=== PATIENT | female | born 1955 | race Caucasian/White ===

== ENCOUNTER → 2017-12-05 | Outpatient (CLI) | payer BC ==
--- NOTE | 2017-12-05 11:55 | BD ---
EXAMINATION TYPE: MG DEXA axial skeleton. DATE OF EXAM: 12/05/2017 COMPARISON: 07.10.2014 CLINICAL HISTORY: PT IS A 62 YR OLD FEMALE: ICD-10 CODE: Z13.820 SCREENING FOR OSTEOPOROSIS Height: 63.5 Weight: 173 FRAX RISK QUESTIONS: Alcohol (3 or more units per day): NO Family History (Parent hip fracture): NO FRACTURES Glucocorticoids (More than 3mos): YES (Ex: prednisone, prednisolone, methylprednisolone, dexamethasone, and hydrocortisone). History of Fracture in Adulthood: NO Secondary Osteoporosis: YES 1. Type 1 Diabetes: NO 2. Hyperthyroidism: NO 3. Menopause before 45: YES AT 43 YRS 4. Malnutrition: NO 5. Chronic liver disease: NO Rheumatoid Arthritis: NO Current Tobacco Use: NO RISK FACTORS HISTORY OF: Family History of Osteoporosis: YES HER SISTER AND MOTHER Active: YES Diet low in dairy products/other sources of calcium: NO Postmenopausal woman: YES AT AGE 43 YRS OLD Take estrogen and/or progesterone medications: YES SINCE AGE 43, 19 YRS Hyperparathyroidism: NO Adrenal Insufficiency: NO MEDICATIONS: Prednisone or other steroids: ON PREDNISONE A WEEK AGO FOR BACK PAIN How Lon WEEK Additional Medications: REFLUX MEDS Additional History: NONE TO NOTE EXAM MEASUREMENTS: Bone mineral densitometry was performed using the [employer] System. Bone mineral density as measured about the Lumbar spine is: ----- L1-L4(G/cm2): 1.239 T Score Values are as follows: ----- L1: 1.2 ----- L2: -0.6 ----- L3: 0.7 ----- L4: 0.5 ----- L1-L4: 0.5 Bone mineral density has: Decreased -4.8% since study of: 07.10.2014 Bone mineral density about the R hip (g/cm2): 1.092 Bone mineral density about the L hip (g/cm2): 1.025 T Score values are as follows: -----R Neck: 0.0 -----L Neck: 0.3 -----R Total: 0.7 -----L Total: 0.1 Bone mineral density has: Decreased -2.4% since study of: 07.10.2014 FRAX%'S: THERE IS A 6.0% CHANCE OF A MAJOR OSTEOPOROTIC FX AND A 0.1% FOR A HIP FX....PROBABILITY OF FX IN 10 YRS TIME IMPRESSION: Normal (Values between +1 and -1 indicate normal bone mass). Consider repeating this study in 5 year s or sooner if there is some new clinical indication. NOTE: T-SCORE=SD OF THE YOUNG ADULT MEAN.
--- NOTE | 2017-12-06 09:11 | MM ---
Reason for exam: screening (asymptomatic). Last mammogram was performed 1 year and 1 month ago. History: Patient is postmenopausal. Family history of breast cancer in 2 paternal aunts at age 50. Taking estrogen for 17 years 6 months beginning at age 43. Physical Findings: A clinical breast exam by your physician is recommended on an annual basis and results should be correlated with mammographic findings. MG Screening Mammo w CAD Bilateral CC and MLO view(s) were taken. Prior study comparison: November 05, 2016, bilateral MG 3d diag mammo w/cad MARCUS. May 05, 2016, right breast MG 3d diag mammo w/cad RT. The breast tissue is heterogeneously dense. This may lower the sensitivity of mammography. There is chronic nodularity bilaterally. No significant changes when compared with prior studies. ASSESSMENT: Benign, BI-RAD 2 RECOMMENDATION: Routine screening mammogram of both breasts in 1 year.
== END | disposition home or self-care (01) ==
LOC: RADMAMWWP 08:24
PROVIDERS: ATTEND Obstetrics & Gynecology
DX: Z12.31 Encounter for screening mammogram for malignant neoplasm of breast (principal); Z13.820 Encounter for screening for osteoporosis
CPT/HCPCS: 77067; 77080

== ENCOUNTER 2018-03-08 08:20 | Day surgery (SDC) | payer BC ==
[2018-03-06 09:49] VITALS: BMI 29.1
--- NOTE | 2018-03-08 08:11 | P.GSHP ---
History of Present Illness H&P Date: 03/08/18 CHIEF COMPLAINT: GERD and colon screen HISTORY OF PRESENT ILLNESS: The patient is a 62-year-old female who presents with gastroesophageal reflux disease and need for colon screen. Upper and lower endoscopy were offered for further evaluation and management. PAST MEDICAL HISTORY: Please see list. PAST SURGICAL HISTORY: Please see list. MEDICATIONS: Please see list. ALLERGIES: Please see list. SOCIAL HISTORY: No illicit drug use FAMILY HISTORY: No reports of Crohn disease or ulcerative colitis. REVIEW OF ORGAN SYSTEMS: CONSTITUTIONAL: No reports of fevers or chills. GI: Denies any blood in stools or constipation. PHYSICAL EXAM: VITAL SIGNS: Stable GENERAL: Well-developed pleasant in no acute distress. HEENT: No scleral icterus. Extraocular movements grossly intact. Moist buccal mucosa. NECK: Supple without lymphadenopathy. CHEST: Unlabored respirations. Equal bilateral excursions. CARDIOVASCULAR: Regular rate and rhythm. Distal 2+ pulses. ABDOMEN: Soft, nondistended. MUSCULOSKELETAL: No clubbing, cyanosis, or edema. ASSESSMENT: 1. Gastroesophageal reflux disease 2. Colon screen. PLAN: 1. Recommend proceeding with an upper and lower endoscopy Past Medical History Past Medical History: COPD, GERD/Reflux, Pneumonia, Thyroid Disorder Additional Past Medical History / Comment(s): hx migraines, hiatal hernia, recent diarrhea, gallbladder -acts up if eats certain foods, goiters/thyroid nodules, History of Any Multi-Drug Resistant Organisms: None Reported Past Surgical History: Section, Heart Catheterization, Hernia Repair, Hysterectomy, Orthopedic Surgery Additional Past Surgical History / Comment(s): COLONOSCOPY, THYROID BIOPSY, jv arthroscopy knee surgery (rt x 2), sinus surgery to remove polyps, Past Anesthesia/Blood Transfusion Reactions: Previous Problems w/ Anesthesia, Motion Sickness Additional Past Anesthesia/Blood Transfusion Reaction / Comment(s): BP dropped with one knee surgery Smoking Status: Former smoker - Past Family History Mother Family Medical History: Cancer Additional Family Medical History / Comment(s): colon Medications and Allergies Home Medications Medication Instructions Recorded Confirmed Type Cetirizine HCl [Zyrtec] 10 mg PO DAILY 07/31/14 03/06/18 History Estradiol [Estrace] 1 mg PO DAILY 07/31/14 03/06/18 History Aclidinium [place] [Tudorza 1 puff PO BID 03/06/18 03/06/18 History Pressair] Fluticasone/Vilanterol [Breo 1 inhalation PO Q24HR 03/06/18 03/06/18 History Ellipta 100-25 Mcg Inhaler] Omeprazole [PriLOSEC] 20 mg PO AC-BRKFST 03/06/18 03/06/18 History Allergies Allergy/AdvReac Type Severity Reaction Status Date / Time codeine Allergy Nausea & Verified 03/06/18 09:40 Vomiting NSAIDS (Non-Steroidal Allergy Anaphylaxis Verified 03/06/18 09:40 Anti-Inflamma clarithromycin [From Biaxin] AdvReac N/V/MIGRAIN Verified 03/06/18 09:40 E levofloxacin [From Levaquin] AdvReac N/V/MIGRAIN Verified 03/06/18 09:40 E
[~2018-03-08 08:20] MED LIST: LACTATED RINGERS 1,000 ML IV SCH
[2018-03-08] MEDS ORDERED: LIDOCAINE 1% 20 ML VIAL (10MG/ML) FOR IV START INTRADERMA ONE (11:20)
[2018-03-08 11:22] VITALS: RESP 18
[2018-03-08] MEDS ORDERED: PROPOFOL 10 MG/ML 20 ML VIAL IV ONE (11:38)
[2018-03-08] MEDS ORDERED: LIDOCAINE 1% INJ 10MG/ML (20 ML MDV) ONE (11:38)
--- NOTE | 2018-03-08 11:55 | P.PCN ---
Date of Procedure: 03/08/18 Description of Procedure: PREOPERATIVE DIAGNOSIS: Gastroesophageal reflux disease. POSTOPERATIVE DIAGNOSIS: Gastritis. Gastroesophageal reflux disease. Diaphragmatic hiatal hernia without obstruction. OPERATION: Esophagogastroduodenoscopy with biopsies along antrum and distal esophagus. SURGEON: Shikha Juarez MD ANESTHESIA: MAC. INDICATIONS: The patient is a 62-year-old female who presents with a history of reflux disease. Benefits and risks of the procedure were described. Informed consent was obtained. DESCRIPTION: The patient was brought into the endoscopy suite and laid in the left lateral decubitus position. An Olympus gastroscope was passed along the posterior oropharynx down to the distal esophagus where the squamocolumnar junction was encountered at 35 cm from the incisors. The stomach was entered and no bile reflux was found. Additional findings are listed below. Biopsies with cold forceps were obtained of the antrum and distal esophage. The first through third portion of the duodenum was examined and unremarkable. Retroflexion of the scope confirmed Hill grade 4 lower esophageal valve. The squamocolumnar junction demostrated LA grade B erosive esophagitis. The stomach was desufflated. The patient tolerated the procedure well. FINDINGS: Squamocolumnar junction 35 cm from the incisors. Diaphragmatic hiatus at 38 cm. Hiatal hernia 3 cm. Hill grade 4 lower esophageal valve. LA grade B erosive esophagitis. No active duodenitis. Mild gastritis. Gastric polyps. RECOMMENDATIONS: Further recommendations pending results of pathology report. Upper endoscopy as needed. Will benefit from antireflux surgical procedure
--- NOTE | 2018-03-08 12:29 | P.PCN ---
Date of Procedure: 03/08/18 Description of Procedure: PREOPERATIVE DIAGNOSIS: Colonoscopy screening. Family history colon cancer POSTOPERATIVE DIAGNOSIS: Colonoscopy screening. Family history colon cancer Multiple tubular adenomas throughout the colon. External hemorrhoids, grade 2 Internal hemorrhoids, grade 2 Scattered diverticulosis OPERATION: Colonoscopy to the ileocecal valve and appendiceal orifice. Colonoscopy with multiple snare biopsies. Colonoscopy with multiple cold forceps biopsies. SURGEON: Shikha Juarez MD. ANESTHESIA: MAC. INDICATIONS: The patient is a 62-year-old female who presents for colonoscopy screening. Benefits and risks were described and informed consent was obtained. DESCRIPTION OF PROCEDURE: The patient had undergone Gatorade, MiraLAX and Dulcolax prep. She had been brought into the operating room and laid in the left lateral decubitus position. After adequate intravenous sedation, the rectum was examined with 2% lidocaine jelly. External hemorrhoids were encountered. The rectal tone was within normal limits. No lesions were palpated in the rectal vault. An Olympus colonoscope was advanced until the ileocecal valve and appendiceal orifice were clearly viewed. The prep was fair with visualization of the mucosal folds. The scope was removed with visualization of each mucosal fold. Scattered diverticulosis was encountered. Multiple colonic polyps were found and cold forcep biopsy or snare polypectomy. No evidence of focal colitis was found. Retroflexion of the scope demonstrated grade 2 internal hemorrhoids without active bleeding or inflammation. The colon was desufflated. The patient had tolerated the procedure well. Withdrawal time was over 6 minutes. FINDINGS: Internal hemorrhoids, grade 2 External hemorrhoids, grade 2. No arteriovenous malformations. Removal of 12 polyps from the proximal, mid transverse colon and descending colon: - Snare polypectomy ileocecal valve x 2, 12 mm and 3 mm tubulovillous adenoma polyp. - Snare polypectomy proximal ascending colon, 8 mm flat villous adenoma polyp. - Snare polypectomy mid ascending colon, 5 mm flat villous adenoma polyp. - Snare polypectomy x 2 at 10 cm from the anal verge, 5 and 3 mm polyp, rectum - Snare polypectomy x 2 at 20 cm from anal verge, 4 mm polyp, sigmoid colon - Cold forceps biopsy at 15 cm from the anal verge, 4 mm polyp. - Cold forceps biopsy at distal transverse colon, 4 mm polyp. No focal colitis. Scattered diverticulosis RECOMMENDATIONS: Given severity of tubular adenomas, recommend repeat colonoscopy 1 year, 2019 Plan - Discharge Summary New Discharge Prescriptions: No Action Cetirizine HCl [Zyrtec] 10 mg PO DAILY Estradiol [Estrace] 1 mg PO DAILY Omeprazole [PriLOSEC] 20 mg PO AC-BRKFST Fluticasone/Vilanterol [Breo Ellipta 100-25 Mcg Inhaler] 1 inhalation PO Q24HR Aclidinium [place] [Tudorza Pressair] 1 puff PO BID Discharge Medication List Cetirizine HCl [Zyrtec] 10 mg PO DAILY 07/31/14 [History] Estradiol [Estrace] 1 mg PO DAILY 07/31/14 [History] Aclidinium [place] [Tudorza Pressair] 1 puff PO BID 03/06/18 [History] Fluticasone/Vilanterol [Breo Ellipta 100-25 Mcg Inhaler] 1 inhalation PO Q24HR 03/06/18 [History] Omeprazole [PriLOSEC] 20 mg PO AC-BRKFST 03/06/18 [History]
[2018-03-08 12:45] VITALS: BP 139/86; PULSE 77
== END 2018-03-08 13:00 | disposition home or self-care (01) ==
LOC: ORWHC2ENDO 08:20
PROVIDERS: ATTEND Surgery Plastic and Reconstructive Surgery
DX: Z12.11 Encounter for screening for malignant neoplasm of colon (principal); D12.2 Benign neoplasm of ascending colon; D12.0 Benign neoplasm of cecum; D12.3 Benign neoplasm of transverse colon; D12.8 Benign neoplasm of rectum; K62.1 Rectal polyp; K63.5 Polyp of colon; K64.4 Residual hemorrhoidal skin tags; K64.1 Second degree hemorrhoids; K57.30 Diverticulosis of large intestine without perforation or abscess without bleeding; K29.50 Unspecified chronic gastritis without bleeding; K21.0 Gastro-esophageal reflux disease with esophagitis; K22.10 Ulcer of esophagus without bleeding; K44.9 Diaphragmatic hernia without obstruction or gangrene; Z80.0 Family history of malignant neoplasm of digestive organs; J44.9 Chronic obstructive pulmonary disease, unspecified; E07.9 Disorder of thyroid, unspecified; Z79.51 Long term (current) use of inhaled steroids; Z79.899 Other long term (current) drug therapy; Z88.6 Allergy status to analgesic agent; Z88.5 Allergy status to narcotic agent; Z88.1 Allergy status to other antibiotic agents; Z87.891 Personal history of nicotine dependence
CPT/HCPCS: 88305; 45380; 45385; 43239; J2001; J2704

== ENCOUNTER → 2018-05-17 | Outpatient (CLI) | payer BC ==
--- NOTE | 2018-05-17 14:12 | US ---
EXAMINATION TYPE: US gallbladder DATE OF EXAM: 05/17/2018 COMPARISON: NONE CLINICAL HISTORY: K80.20Calculus of gallbladder w/out cholecystitis; LUQ pain that radiates to back a nd noted after meals,nausea, diarrhea, hiatal hernia EXAM MEASUREMENTS: Liver Length: 15.7 cm Gallbladder Wall: 0.2 cm CBD: 0.3 cm Right Kidney: 9.2 x 5.2 x 3.4 cm Pancreas: hyperechoic but homogeneous Liver: wnl Gallbladder: wnl Evidence for sonographic Mehta's sign: no CBD: wnl Right Kidney: wnl IMPRESSION: Normal abdomen ultrasound
== END | disposition home or self-care (01) ==
LOC: RADUSWWP 10:22
PROVIDERS: ATTEND Surgery Plastic and Reconstructive Surgery
DX: K80.20 Calculus of gallbladder without cholecystitis without obstruction (principal); Z88.6 Allergy status to analgesic agent; Z88.5 Allergy status to narcotic agent; Z88.1 Allergy status to other antibiotic agents
CPT/HCPCS: 76705

== ENCOUNTER → 2018-05-23 | Outpatient (CLI) | payer BC ==
--- NOTE | 2018-05-23 10:41 | NM ---
EXAMINATION TYPE: NM hepatobiliary w EF DATE OF EXAM: 05/23/2018 COMPARISON: Ultrasound gallbladder 05/17/2018 HISTORY: Epigastric pain, heartburn, Gallstones TECHNIQUE: After the intravenous administration of 4.87 mCi Tc 99m Mebrofenin hepatobiliary scintigra phy is performed. Immediate images post injection. FINDINGS: There is satisfactory initial accumulation of tracer by the liver. The gallbladder is visualized wit hin 12 minutes. The small bowel activity is noted within 6 minutes. At one hour 8 ounces of oral en sure plus is given to mimic CCK and gallbladder ejection fraction is calculated at 70 %, in the rupa l range. Therefore there is no scintigraphic evidence of cystic or common bile duct obstruction to s uggest acute cholecystitis or gallbladder dyskinesia. IMPRESSION: Exam is within normal limits.
== END | disposition home or self-care (01) ==
LOC: RADNMMAIN 06:55
PROVIDERS: ATTEND Surgery Plastic and Reconstructive Surgery
DX: K80.20 Calculus of gallbladder without cholecystitis without obstruction (principal); Z88.1 Allergy status to other antibiotic agents; Z88.6 Allergy status to analgesic agent
CPT/HCPCS: 78226; A9537

== ENCOUNTER → 2018-06-20 | Outpatient (CLI) | payer BC ==
--- NOTE | 2018-06-20 12:13 | CT ---
EXAMINATION TYPE: CT abdomen pelvis w con DATE OF EXAM: 06/20/2018 COMPARISON: None HISTORY: Pancreatic lesion/mass CT DLP: 673.2 mGycm CONTRAST: CT scan of the abdomen and pelvis is performed with Oral Contrast and with IV Contrast, patient injec jeannine with 120 mL of Isovue 370. FINDINGS: LUNG BASES-: No visible nodule. No infiltrate. Basilar linear atelectasis noted. LIVER/GB: No calcified gallstones. No space occupying hepatic lesion. Biliary tree is of normal ca liber. Mild fatty hepatic infiltration. PANCREAS: No inflammation. 7.5 mm cystic lesion within the pancreatic body. No evidence for solid ma ss at this time. No evidence of pancreatic ductal dilatation. No unusual pancreatic calcifications. SPLEEN: No splenic enlargement. No lesion seen. ADRENALS: No nodule. No thickening. KIDNEYS/BLADDER: No hydronephrosis. No nephrolithiasis. No distinct renal mass. Urinary bladder g rossly unremarkable. BOWEL: Normal appendix. Normal bowel caliber. No inflammation. GENITAL ORGANS: No gross abnormality. LYMPH NODES: No greater than 1cm abdominal or pelvic lymph nodes are appreciated. AORTA: No significant abnormality. OSSEOUS STRUCTURES: No significant abnormality is seen. OTHER: No significant additional abnormality is seen. IMPRESSION: 1. Nonspecific 7.5 mm cystic lesion within the pancreatic body. No evidence for solid mass at this t meliza. No evidence of pancreatic ductal dilatation. No unusual pancreatic calcifications.
== END | disposition home or self-care (01) ==
LOC: RADCTMAIN 08:19
PROVIDERS: ATTEND Surgery Plastic and Reconstructive Surgery
DX: K86.9 Disease of pancreas, unspecified (principal); Z88.1 Allergy status to other antibiotic agents; Z88.6 Allergy status to analgesic agent
CPT/HCPCS: 74177; Q9967

== ENCOUNTER → 2018-07-11 | Outpatient (CLI) | payer BC ==
[2018-07-11 11:29] LABS: HCT 51.7 % (34.0-46.0); MCHC 32.9 g/dL (31.0-37.0); MCV 94.3 fL (80.0-100.0); Mean Platelet Volume 6.6; Platelet Count 292 k/uL (150-450); RBC 5.48 m/uL (3.80-5.40); WBC 6.2 k/uL (3.8-10.6)
[2018-07-11 16:32] LABS: Iron Saturation 24.62 (12.00-45.00)
== END | disposition home or self-care (01) ==
LOC: LABWHC1 10:40
PROVIDERS: ATTEND Surgery Plastic and Reconstructive Surgery
DX: E61.1 Iron deficiency (principal)
CPT/HCPCS: 36415; 83540; 83550; 85027

== ENCOUNTER → 2018-12-05 | Outpatient (CLI) | payer BC ==
[2018-12-05 09:49] LABS: HCT 51.3 % (34.0-46.0); HGB 16.6 gm/dL (11.4-16.0); MCH 30.7 pg (25.0-35.0); MCHC 32.4 g/dL (31.0-37.0); MCV 94.6 fL (80.0-100.0); Mean Platelet Volume 7.1; Platelet Count 293 k/uL (150-450); RBC 5.42 m/uL (3.80-5.40); WBC 9.1 k/uL (3.8-10.6)
== END ==
LOC: LABPAT 08:55
PROVIDERS: ATTEND Surgery Plastic and Reconstructive Surgery
DX: Z01.812 Encounter for preprocedural laboratory examination (principal)
CPT/HCPCS: 85027

== ENCOUNTER 2018-12-08 10:44 | Observation (INO) | payer BC ==
[2018-12-05 08:35] VITALS: BMI 27.9
--- NOTE | 2018-12-08 08:04 | P.GSHP ---
History of Present Illness H&P Date: 12/08/18 CHIEF COMPLAINT: Paraesophageal hiatal hernia with gastroesophageal reflux disease. HISTORY OF PRESENT ILLNESS: The patient is a 63-year-old female who presents with paraesophageal hiatal hernia. She has completed an esophageal manometry including upper endoscopy workup. Now she presents for surgical intervention. PAST MEDICAL HISTORY: Please see list. PAST SURGICAL HISTORY: Please see list. MEDICATIONS: Please see list. ALLERGIES: Please see list. SOCIAL HISTORY: No illicit drug use FAMILY HISTORY: No reports of Crohn disease or ulcerative colitis. REVIEW OF ORGAN SYSTEMS: CONSTITUTIONAL: No reports of fevers or chills. GI: Denies any blood in stools or constipation. PHYSICAL EXAM: VITAL SIGNS: Stable GENERAL: Well-developed pleasant and in no acute distress. HEENT: No scleral icterus. Extraocular movements grossly intact. Moist buccal mucosa. NECK: Supple without lymphadenopathy. CHEST: Unlabored respirations. Equal bilateral excursions. CARDIOVASCULAR: Regular rate and rhythm. Distal 2+ pulses. ABDOMEN: Soft, nondistended. No peritoneal signs. MUSCULOSKELETAL: No clubbing, cyanosis, or edema. SKIN: Well-perfused. Good skin turgor. MANOMETRY: Shows no evidence of achalasia or scleroderma. ASSESSMENT: 1. Diaphragmatic paraesophageal hiatal hernia with severe gastroesophageal reflux disease. PLAN: 1. Recommend proceeding with a robotic paraesophageal hiatal hernia with possible mesh. 2. Benefits and risks of surgical intervention was discussed including possibility of open technique. 3. Inpatient hospitalization recommended of 2 nights 4. DVT prophylaxis. 5. Antibiotic prophylaxis. 6. She has also completed a very low caloric high-protein diet to address underlying hepatomegaly. Past Medical History Past Medical History: COPD, GERD/Reflux, Pneumonia, Thyroid Disorder Additional Past Medical History / Comment(s): past hx migraines, hiatal hernia, goiters/thyroid nodules, History of Any Multi-Drug Resistant Organisms: None Reported Past Surgical History: Section, Heart Catheterization, Hernia Repair, Hysterectomy, Orthopedic Surgery Additional Past Surgical History / Comment(s): COLONOSCOPY, THYROID BIOPSY, jv arthroscopy knee surgery (rt x 2), sinus surgery to remove polyps, jv inguinal hernia Past Anesthesia/Blood Transfusion Reactions: Previous Problems w/ Anesthesia, Motion Sickness, Postoperative Nausea & Vomiting (PONV) Additional Past Anesthesia/Blood Transfusion Reaction / Comment(s): BP dropped post op Smoking Status: Former smoker - Past Family History Mother Family Medical History: Cancer Additional Family Medical History / Comment(s): colon Medications and Allergies Home Medications Medication Instructions Recorded Confirmed Type Cetirizine HCl [Zyrtec] 10 mg PO DAILY 07/31/14 12/05/18 History Estradiol [Estrace] 1 mg PO DAILY 07/31/14 12/05/18 History Aclidinium [place] [Tudorza 1 puff PO BID 03/06/18 12/05/18 History Pressair] Fluticasone/Vilanterol [Breo 1 inhalation PO Q24HR 03/06/18 12/05/18 History Ellipta 100-25 Mcg Inhaler] Omeprazole [PriLOSEC] 20 mg PO AC-BRKFST 03/06/18 12/05/18 History Allergies Allergy/AdvReac Type Severity Reaction Status Date / Time codeine Allergy Nausea & Verified 12/05/18 08:32 Vomiting NSAIDS (Non-Steroidal Allergy Anaphylaxis Verified 12/05/18 08:32 Anti-Inflamma clarithromycin [From Biaxin] AdvReac N/V/MIGRAIN Verified 12/05/18 08:32 E levofloxacin [From Levaquin] AdvReac N/V/MIGRAIN Verified 12/05/18 08:32 E
[~2018-12-08 10:44] MED LIST changes: +ACETAMINOPHEN IV (For NPO) 1,000 MG in EMPTY BAG 1 BAG IVPB ONE; +DEXAMETHASONE SOD PHOSPHATE 10 MG/ML 1 ML VIAL IV ONE; +HEPARIN SODIUM,PORCINE 5,000 UNIT/ML 1 ML VIAL SQ ONE; +LIDOCAINE 1% 20 ML VIAL (10MG/ML) FOR IV START INTRADERMA PRN; +MIDAZOLAM 2 MG/2 ML VIAL IV PRN; +SCOPOLAMINE 1.5MG/72HR PATCH TRANSDERM STA; +ceFAZolin IN SWFI 2 GM/20 ML SYRINGE IVP ONE; +fentaNYL (PF) 50 MCG/ML 2 ML AMP IV PRN
[2018-12-08] MEDS ORDERED: ONDANSETRON 4 MG/2 ML VIAL IVP ONE (12:00)
[2018-12-08] MEDS ORDERED: ROCURONIUM BROMIDE 10 MG/ML 10 ML VIAL IV ONE (14:00)
[2018-12-08] MEDS ORDERED: PROPOFOL 10 MG/ML 20 ML VIAL IV ONE (14:00)
[2018-12-08] MEDS ORDERED: LIDOCAINE 1% INJ 10MG/ML (20 ML MDV) ONE (14:00)
[2018-12-08] MEDS ORDERED: fentaNYL (PF) 50 MCG/ML 2 ML AMP ONE (14:00)
[2018-12-08] MEDS ORDERED: SUCCINYLCHOLINE CHLORIDE 100 MG/5 ML SYR IV ONE (14:00)
[2018-12-08] MEDS ORDERED: NEOSTIGMINE 1 MG/ML 10 ML VIAL ONE (14:00)
[2018-12-08] MEDS ORDERED: MIDAZOLAM 2 MG/2 ML VIAL ONE (14:00)
[2018-12-08] MEDS ORDERED: GLYCOPYRROLATE 0.2 MG/ML 2 ML VIAL ONE (14:00)
[2018-12-08] MEDS ORDERED: HYDROmorphone (PF) 1 MG/ML ONE (14:00)
[2018-12-08] MEDS ORDERED: BUPIVACAIN-EPI 0.25%-1:200,000 30 ML VIAL SQ ONE (14:38)
[2018-12-08] MEDS ORDERED: LACTATED RINGERS 1,000 ML IV ONE (15:54)
[2018-12-08] MEDS ORDERED: ACETAMINOPHEN IV (For NPO) 1,000 MG in EMPTY BAG 1 BAG IVPB ONE (16:06)
[2018-12-08] MEDS ORDERED: NALOXONE 0.4 MG/ML 1 ML VIAL IV PRN (16:06)
--- NOTE | 2018-12-08 16:06 | P.OP ---
Date of Procedure: 12/08/18 Description of Procedure: DESCRIPTION OF PROCEDURE(S): SURGEON: ABRAN HOWARD MD PREOPERATIVE DIAGNOSES: 1. Gastroesophageal reflux disease. 2. Paraesophageal hiatal hernia, midline. 3. Chronic obstructive pulmonary disease POSTOPERATIVE DIAGNOSES: 1. Gastroesophageal reflux disease. 2. Paraesophageal hiatal hernia, midline, 4 x 3 cm 3. Chronic obstructive pulmonary disease OPERATION: 1. Robotic-assisted da Franky Xi laparoscopic repair of paraesophageal hiatal hernia, 4 x 3 cm, with [place] Biopatch A 8 x 8 cm. 2. Intraoperative esophagogastroduodenoscopy with cold biopsy forceps of the antrum 3. Placement of esophageal 56-Northern Irish bougie ANESTHESIA: General with local anesthetic. ESTIMATED BLOOD LOSS: 5 mL SPECIMENS REMOVED: 1. Mediastinal mass 3 cm at phrenoesophageal ligament 2. Antrum biopsies upper endoscopy COMPLICATIONS: None. Pathology: none sent Condition: stable Disposition: floor FINDINGS: 1. Midline paraesophageal hiatal hernia 4 x 3 2. Intraoperative upper endoscopy confirms complete closure of hiatal hernia from Hill grade 4 to Hill grade 1 INDICATIONS: The patient is a 63-year-old female who presents with regurgitation, gastroesophageal reflux disease poorly controlled despite medications, and a symptomatic diaphragmatic hiatal hernia. Preoperative workup including upper endoscopy demonstrated a Hill grade 4 lower esophageal valve. She completed an esophageal manometry. Given the severity of symptoms, she had elected for surgical intervention. Benefits and risks including bleeding, infection, recurrence, dysphagia, injury to the lung, need for further surgery was described at length. Informed consent was obtained. DESCRIPTION: The patient was brought into the operating room and placed in supine position. Preoperatively she had received heparin subcutaneously for DVT prophylaxis. After general induction, the abdomen was prepped and draped in standard sterile fashion. The patient had previously voided prior to coming to the operating room. Ioban draping was placed along the abdomen. A timeout protocol was confirmed with the surgical team, for which the patient's name, procedure to be performed including DVT prophylaxis with bilateral SCDs, and preoperative antibiotics were also confirmed. A robotic da Franky Xi system was prepped and primed. At 12 cm from the xiphoid to just below the umbilicus, proposed port sites were marked with indelible marker along the left axillary line, left mid-clavicular line with each ports were marked 10 cm from each other. A 5 mm 0 degrees laparoscopic trocar entry was performed along the left upper quadrant. The abdomen was insufflated to 15 mmHg pressure was tolerated well. Diagnostic laparoscopy demonstrated no injury to bowel, viscera, or mesentery. No injury had occurred to the small bowel or viscera. Next, one 8 mm robotic port was placed along the right upper abdomen. An 8-mm port was were placed along the left lateral abdominal wall. The camera 8-mm port was maintained along the epigastrium via the hernia defect. Another 12 mm port was placed along the left upper abdominal wall after exchanging the 5 mm port. Please note that the ports were placed at least 20 cm away from the target anatomy. Care was taken to check that each robotic arm were safely away from collision with the bed or the patient. At the epigastrium, a median sized Jyoti liver retractor was placed under direct visualization with the Iron Dwarf Tree Grower placed under the right shoulder of the patient. All robotic arms were used. The patient was repositioned in reverse Trendelenburg position at 14-degrees after lowering the bed. The robot was docked above the right side of the patient. Using a grasper for arm 3, a grasper for arm 1, including vessel sealer for arm 2, the robotic system was docked and primed as described. Instruments were interchanged by the clinical assistant. I had sat at the console. The gastrohepatic ligament was cleaved using a vessel sealer. Next, the phrenoesophageal ligament was mobilized and the distal esophagus was mobilized circumferentially. The left and right crura was identified. Circumferentially, the hernia sac was excised and brought into the peritoneal cavity. Moderate dissection into the mediastinum was performed to release the esophagus into the abdominal cavity. Care was taken to avoid any gastrotomy. The measured defect was consistent with 4 cm axial length and 3 cm in width. After dissection, the distal esophagus of 3 cm was brought into the abdominal cavity. Once the hiatus and crura was dissected, 2-0 VLOC suture was placed to reapproximate the diaphragmatic hiatus posteriorly. To buttress the repair, a [place] Biopatch A was prepared along the back table and cut in half of a reyes-hole fashion as to reinforce the repair as an underlay. The mesh was placed along the crural repair and tagged using horizontal mattress sutures using 2-0 VLOC. I went to the head of the bed to perform intraoperative esophagogastroduodenoscopy and placement of a 56Fr bougie. The patient has history of presbyesophagus including mild esophageal dysmotility and a 56-[place] bougie was placed under direct visualization. The bougie was placed for 1 minute and then removed. An Olympus gastroscope was passed through posterior oropharynx. Retroflexion of the scope confirmed a Hill grade 1 lower esophageal valve. The stomach had been desufflated. No evidence of leaks were found of the esophagus or stomach. The squamocolumnar junction and hiatus was placed at 40 cm from the incisors. The GI tract with desufflated This concluded the endoscopic portion of the case. The robot was undocked from the patient. I re-scrubbed into the case. All instruments and pneumoperitoneum and specimens were evacuated from the abdominal cavity. Incisions were reapproximated using 4-0 Monocryl in an interrupted subcuticular fashion. Liquid glue was applied to the skin. Local anesthetic was infiltrated in all wounds for postop analgesia. Multiple intra-abdominal films were obtained. At the end of the procedure, needle, sponge, and instrument count was verified correct by the surgical appliance fitter. The patient had tolerated the procedure well and was taken to the postanesthesia unit in stable condition. Intraoperative films were reviewed with the patient's family who was pleased with the level of care.
[2018-12-08] MEDS ORDERED: ACETAMINOPHEN ORAL SUSP 160 MG/5 ML CUP PO PRN (16:09)
[2018-12-08] MEDS: HYDROmorphone 1 MG/ML 1 ML SYRINGE IVP PRN (16:27)
[2018-12-08] MEDS ORDERED: HYDROmorphone 1 MG/ML 1 ML SYRINGE IVP ONE (16:49)
[2018-12-08 18:24] LABS: Calcium 9.1 mg/dL (8.4-10.2); Potassium 4.1 mmol/L (3.5-5.1)
[2018-12-08] MEDS: METOCLOPRAMIDE 5 MG/ML 2 ML VIAL IVP SCH (18:37)
[2018-12-08] MEDS: ONDANSETRON 4 MG/2 ML VIAL IVP SCH (18:37)
[2018-12-08] MEDS: SIMETHICONE 40 MG/0.6 ML DROPS 2,000 MG/30 ML BOTTLE PO SCH (18:37)
[2018-12-08] MEDS: HYOSCYAMINE ORAL DROPS 1.875 MG/15 ML BOTTLE PO SCH (18:37)
[2018-12-08] MEDS: DEXAMETHASONE SOD PHOSPHATE 4 MG/ML 1 ML VIAL IV SCH (19:36)
[2018-12-08] MEDS: D5-0.45% NACL WITH KCL 20MEQ/L 1,000 ML IV SCH (22:00)
[2018-12-09] MEDS: D5-0.45% NACL WITH KCL 20MEQ/L 1,000 ML IV SCH ×2 (00:01→06:14)
[2018-12-09] MEDS: ceFAZolin IN SWFI 2 GM/20 ML SYRINGE IVP SCH ×2 (00:02→08:29)
[2018-12-09] MEDS: SIMETHICONE 40 MG/0.6 ML DROPS 2,000 MG/30 ML BOTTLE PO SCH ×3 (00:03→11:59)
[2018-12-09] MEDS: HYOSCYAMINE ORAL DROPS 1.875 MG/15 ML BOTTLE PO SCH ×3 (00:05→11:58)
[2018-12-09] MEDS: ONDANSETRON 4 MG/2 ML VIAL IVP SCH ×3 (00:06→12:00)
[2018-12-09] MEDS: METOCLOPRAMIDE 5 MG/ML 2 ML VIAL IVP SCH ×3 (00:18→12:01)
[2018-12-09] MEDS: DEXAMETHASONE SOD PHOSPHATE 4 MG/ML 1 ML VIAL IV SCH ×3 (00:20→12:01)
[2018-12-09] MEDS: HYDROmorphone 1 MG/ML 1 ML SYRINGE IVP PRN ×2 (00:21→06:34)
--- NOTE | 2018-12-09 08:25 | FL ---
EXAMINATION TYPE: FL esophagus cervic/pharynx DATE OF EXAM ORDERED: 12/09/2018 8:13 AM HISTORY: Status post Paul fundoplication. COMPARISON: None. FINDINGS: The patient drank contrast with ease. There is prompt egress of barium from the esophagus into the stomach. There is no evidence of extravasation. No significant free air is seen. The ligamen t of [place] is in the normal location. IMPRESSION: STATUS POST PAUL FUNDOPLICATION.
[2018-12-09 08:45] VITALS: PULSE 71; RESP 18
[2018-12-09 08:51] LABS: Basophils % (A) 0 %; Eosinophils % (A) 0 %; HCT 50.3 % (34.0-46.0); HGB 15.8 gm/dL (11.4-16.0); Lymphocytes # (A) 0.9 k/uL (1.0-4.8); Lymphocytes % (A) 6 %; MCH 30.2 pg (25.0-35.0); MCHC 31.5 g/dL (31.0-37.0); MCV 95.9 fL (80.0-100.0); Mean Platelet Volume 6.5; Monocytes # (A) 0.4 k/uL (0-1.0); Monocytes % (A) 3 %; Neutrophils # (A) 12.5 k/uL (1.3-7.7); Neutrophils % (A) 90 %; Platelet Count 266 k/uL (150-450); RBC 5.24 m/uL (3.80-5.40); RDW 13.9 % (11.5-15.5)
[2018-12-09 08:59] LABS: Anion Gap 8 mmol/L; Blood Urea Nitrogen 9 mg/dL (7-17); Calcium 9.4 mg/dL (8.4-10.2); Carbon Dioxide 22 mmol/L (22-30); Chloride 110 mmol/L (98-107); Magnesium 2.1 mg/dL (1.6-2.3); Potassium 4.5 mmol/L (3.5-5.1); Sodium 140 mmol/L (137-145)
[2018-12-09] MEDS ORDERED: ENOXAPARIN 40 MG/0.4 ML SYRINGE SQ SCH (09:00)
[2018-12-09] MEDS ORDERED: PANTOPRAZOLE 40 MG/10 ML VIAL IV SCH (09:00)
[2018-12-09] MEDS ORDERED: SODIUM PHOSPHATE 10 MMOL in SODIUM CHLORIDE 0.9% 250 ML IVPB ONE (13:38)
[2018-12-09] MEDS ORDERED: Phosphorus Replacement Protoco 1 EACH MISC MISCELLANE PRN (13:38)
[2018-12-09] MEDS ORDERED: SODIUM GLYCEROPHOSPHATE 10 MMOL in SODIUM CHLORIDE 0.9% 250 ML IV ONE (13:45)
--- NOTE | 2018-12-09 14:09 | P.DS ---
Providers Date of admission: 12/09/18 06:54 Expected date of discharge: 12/09/18 Attending physician: Shikha Juarez Primary care physician: Otto Rodriguez - Discharge Diagnosis(es) (1) Hiatal hernia with GERD and esophagitis Current Visit: Yes Status: Acute (2) COPD (chronic obstructive pulmonary disease) Current Visit: Yes Status: Acute (3) PONV (postoperative nausea and vomiting) Current Visit: Yes Status: Acute Hospital Course: CHIEF COMPLAINT: Gastroesophageal reflux disease HISTORY OF PRESENT ILLNESS: The patient is a 63-year-old female who presented with gastroesophageal reflux disease including a symptomatic hiatal hernia. She had completed both upper endoscopy including manometry preoperatively. Features were consistent with symptomatic diaphragmatic hernia with reflux disease. She underwent robotic-assisted hiatal hernia repair with mesh placement for moderate size paraesophageal hiatal hernia. Post procedure, she had no coughing. Her gastroesophageal reflux disease resolved. She had passed her esophagram. is at bedside. Intraoperative films were reviewed in detail including post hiatal hernia repair discharge instructions. All questions were reviewed. PHYSICAL EXAM: VITAL SIGNS: Reviewed Vital Signs Temp 98.4 F 12/09/18 08:45 Pulse 71 12/09/18 08:45 Resp 18 12/09/18 08:45 BP 108/65 12/09/18 08:45 Pulse Ox 93 L 12/09/18 08:47 Intake & Output 12/08/18 12/09/18 12/09/18 18:59 06:59 18:59 Intake Total 1750 1730 Output Total 5 1350 Balance 1745 380 Weight 76.204 kg Intake: IV 1750 Oral 1730 Output: Urine 1350 Estimated Blood Loss 5 Other: # Voids 1 GENERAL: Well-developed in no acute distress. HEENT: No sclera icterus. Extraocular movements grossly intact. Moist buccal mucosa. Head is atraumatic, normocephalic. Hears conversational speech. No nasal drainage. NECK: Supple without lymphadenopathy. CHEST: Non-labored respirations and equal bilateral excursions. CARDIOVASCULAR: Palpable 2+ radial pulses. ABDOMEN: Incisions clean dry and intact. MUSCULOSKELETAL: No clubbing, cyanosis or edema. NEUROLOGIC: No focal or lateralizing signs. Cranial nerves II through XII grossly intact. PSYCH: Appropriate affect. Alert and oriented to person, place and time. SKIN: Well perfused. Good skin turgor. STUDIES: Esophagram personally reviewed negative for leak or obstruction Laboratory Last Values WBC 14.0 k/uL (3.8-10.6) H 12/09/18 08:24 RBC 5.24 m/uL (3.80-5.40) 12/09/18 08:24 Hgb 15.8 gm/dL (11.4-16.0) 12/09/18 08:24 Hct 50.3 % (34.0-46.0) H 12/09/18 08:24 MCV 95.9 fL (80.0-100.0) 12/09/18 08:24 MCH 30.2 pg (25.0-35.0) 12/09/18 08:24 MCHC 31.5 g/dL (31.0-37.0) 12/09/18 08:24 RDW 13.9 % (11.5-15.5) 12/09/18 08:24 Plt Count 266 k/uL (150-450) 12/09/18 08:24 Neutrophils % 90 % 12/09/18 08:24 Lymphocytes % 6 % 12/09/18 08:24 Monocytes % 3 % 12/09/18 08:24 Eosinophils % 0 % 12/09/18 08:24 Basophils % 0 % 12/09/18 08:24 Neutrophils # 12.5 k/uL (1.3-7.7) H 12/09/18 08:24 Lymphocytes # 0.9 k/uL (1.0-4.8) L 12/09/18 08:24 Monocytes # 0.4 k/uL (0-1.0) 12/09/18 08:24 Eosinophils # 0.0 k/uL (0-0.7) 12/09/18 08:24 Basophils # 0.0 k/uL (0-0.2) 12/09/18 08:24 Sodium 140 mmol/L (137-145) 12/09/18 08:24 Potassium 4.5 mmol/L (3.5-5.1) 12/09/18 08:24 Chloride 110 mmol/L (98-107) H 12/09/18 08:24 Carbon Dioxide 22 mmol/L (22-30) 12/09/18 08:24 Anion Gap 8 mmol/L 12/09/18 08:24 BUN 9 mg/dL (7-17) 12/09/18 08:24 Creatinine 0.80 mg/dL (0.52-1.04) 12/09/18 08:24 Est GFR (CKD-EPI)AfAm >90 (>60 ml/min/1.73 sqM) 12/09/18 08:24 Est GFR (CKD-EPI)NonAf 80 (>60 ml/min/1.73 sqM) 12/09/18 08:24 Glucose 173 mg/dL (74-99) H 12/08/18 17:55 Calcium 9.4 mg/dL (8.4-10.2) 12/09/18 08:24 Phosphorus 2.0 mg/dL (2.5-4.5) L 12/09/18 08:24 Magnesium 2.1 mg/dL (1.6-2.3) 12/09/18 08:24 ASSESSMENT: 1. Gastroesophageal reflux disease with hiatal hernia symptomatic PLAN: 1. Discharge home today with liquid diet for 2 weeks 2. No lifting over 4 pounds in 4 weeks reviewed. 3. Follow-up in the office in 5 days. Pertinent Studies: Esophagram negative for leaks or obstruction Procedures: Robotic paraesophageal hiatal hernia repair with mesh, 12/08/2018 Patient Condition at Discharge: Good Plan - Discharge Summary Discharge Rx Participant: No New Discharge Prescriptions: New Acetaminophen Oral Susp (Peds) [Tylenol Oral Susp For Peds (Grape)] 500 mg PO Q6H #300 bottle Bisacodyl [Dulcolax] 5 mg PO DAILY PRN #10 tablet. PRN Reason: Constipation Ondansetron Odt [Zofran Odt] 4 mg PO Q8HR PRN #9 tab PRN Reason: Nausea Simethicone 40 mg/0.6 ml Drops [Mylicon Drops] 40 mg PO PCHS PRN #30 ml PRN Reason: Gas No Action Cetirizine HCl [Zyrtec] 10 mg PO DAILY Estradiol [Estrace] 1 mg PO DAILY Omeprazole [PriLOSEC] 20 mg PO AC-BRKFST Fluticasone/Vilanterol [Breo Ellipta 100-25 Mcg Inhaler] 1 inhalation PO RT- DAILY Aclidinium [place] [Tudorza Pressair] 1 puff PO RT-BID Discharge Medication List Cetirizine HCl [Zyrtec] 10 mg PO DAILY 07/31/14 [History] Estradiol [Estrace] 1 mg PO DAILY 07/31/14 [History] Aclidinium [place] [Tudorza Pressair] 1 puff PO RT-BID 03/06/18 [History] Fluticasone/Vilanterol [Breo Ellipta 100-25 Mcg Inhaler] 1 inhalation PO RT- DAILY 03/06/18 [History] Omeprazole [PriLOSEC] 20 mg PO AC-BRKFST 03/06/18 [History] Acetaminophen Oral Susp (Peds) [Tylenol Oral Susp For Peds (Grape)] 500 mg PO Q6H #300 bottle 12/09/18 [Rx] Bisacodyl [Dulcolax] 5 mg PO DAILY PRN #10 tablet.dr 12/09/18 [Rx] Ondansetron Odt [Zofran Odt] 4 mg PO Q8HR PRN #9 tab 12/09/18 [Rx] Simethicone 40 mg/0.6 ml Drops [Mylicon Drops] 40 mg PO PCHS PRN #30 ml [Rx] Follow up Appointment(s)/Referral(s): Shikha Juarez MD [STAFF PHYSICIAN] - 12/12/18 (Please call to confirm time) Patient Instructions/Handouts: Laparoscopic Hiatal Hernia Repair (DC), Full Liquid Diet (DC), How to Use an Incentive Spirometer (DC) Activity/Diet/Wound Care/Special Instructions: Liquid diet only. No carbonated beverages. No straws. No lifting over 4 pounds in 4 weeks. May shower. No bath tub soaks. May take [id number] Tylenol or Aleve for pain. Discharge Disposition: HOME SELF-CARE
[2018-12-09 14:14] VITALS: BP 114/75; TEMP 98
== END 2018-12-09 14:30 | disposition home or self-care (01) ==
LOC: OR 10:44 → 6PED 15:57 → OR 12-09 06:47 → 6PED 12-09 06:54
PROVIDERS: ADMIT Surgery Plastic and Reconstructive Surgery; ATTEND Surgery Plastic and Reconstructive Surgery
DX: K44.9 Diaphragmatic hernia without obstruction or gangrene (principal); J44.9 Chronic obstructive pulmonary disease, unspecified; K21.0 Gastro-esophageal reflux disease with esophagitis; Z87.01 Personal history of pneumonia (recurrent); Z79.890 Hormone replacement therapy; Z87.891 Personal history of nicotine dependence; Z90.710 Acquired absence of both cervix and uterus; Z79.899 Other long term (current) drug therapy; Z79.51 Long term (current) use of inhaled steroids; Z88.6 Allergy status to analgesic agent; Z88.1 Allergy status to other antibiotic agents; Z88.5 Allergy status to narcotic agent
CPT/HCPCS: 43280; S2900; 74210; 80048; 80051; 82310; 82565; 83735; 84100; 84520; 85025; 96372; 96374; 96375

== ENCOUNTER → 2018-12-21 | Outpatient (CLI) | payer BC ==
--- NOTE | 2018-12-24 13:00 | MM ---
Reason for exam: screening (asymptomatic). Last mammogram was performed 1 year and 1 month ago. History: Patient is postmenopausal. Family history of breast cancer in 2 paternal aunts at age 50. Taking estrogen for 17 years 6 months beginning at age 43. MG Screening Mammo w CAD Bilateral CC and MLO view(s) were taken. Prior study comparison: December 05, 2017, bilateral MG screening mammo w CAD. November 05, 2016, bilateral MG 3d diag mammo w/cad [facility]. The breast tissue is heterogeneously dense. This may lower the sensitivity of mammography. No discrete abnormality. No significant changes when compared with prior studies. ASSESSMENT: Negative, BI-RAD 1 RECOMMENDATION: Routine screening mammogram of both breasts in 1 year.
== END | disposition home or self-care (01) ==
LOC: RADMAMWWP 10:03
PROVIDERS: ATTEND Obstetrics & Gynecology
DX: Z12.31 Encounter for screening mammogram for malignant neoplasm of breast (principal)
CPT/HCPCS: 77067

== ENCOUNTER 2019-03-28 09:04 | Day surgery (SDC) | payer BC ==
[2019-03-23 15:15] VITALS: BMI 25.2
--- NOTE | 2019-03-28 08:49 | P.GSHP ---
History of Present Illness H&P Date: 03/28/19 CHIEF COMPLAINT: GERD and colon screen HISTORY OF PRESENT ILLNESS: The patient is a 63-year-old female who presents with gastroesophageal reflux disease and need for colon screen. Upper and lower endoscopy were offered for further evaluation and management. PAST MEDICAL HISTORY: Please see list. PAST SURGICAL HISTORY: Please see list. MEDICATIONS: Please see list. ALLERGIES: Please see list. SOCIAL HISTORY: No illicit drug use FAMILY HISTORY: No reports of Crohn disease or ulcerative colitis. REVIEW OF ORGAN SYSTEMS: CONSTITUTIONAL: No reports of fevers or chills. GI: Denies any blood in stools or constipation. PHYSICAL EXAM: VITAL SIGNS: Stable GENERAL: Well-developed pleasant in no acute distress. HEENT: No scleral icterus. Extraocular movements grossly intact. Moist buccal mucosa. NECK: Supple without lymphadenopathy. CHEST: Unlabored respirations. Equal bilateral excursions. CARDIOVASCULAR: Regular rate and rhythm. Distal 2+ pulses. ABDOMEN: Soft, nondistended. MUSCULOSKELETAL: No clubbing, cyanosis, or edema. ASSESSMENT: 1. Gastroesophageal reflux disease 2. Colon screen. PLAN: 1. Recommend proceeding with an upper and lower endoscopy Past Medical History Past Medical History: COPD, GERD/Reflux, Thyroid Disorder, Vascular Disorder Additional Past Medical History / Comment(s): hx of colon polyps, past hx migraines, hx goiters/thyroid nodules, HX VARICOSE VEINS, STATES "BAD CIRCULATION" History of Any Multi-Drug Resistant Organisms: None Reported Past Surgical History: Section, Heart Catheterization, Hernia Repair, Hysterectomy, Orthopedic Surgery Additional Past Surgical History / Comment(s): jewel funlaplasty, COLONOSCOPY, THYROID BIOPSY, jv arthroscopy knee surgery (rt x 2), sinus surgery to remove polyps, jv inguinal hernia, VEIN STRIPPING Past Anesthesia/Blood Transfusion Reactions: Previous Problems w/ Anesthesia, Motion Sickness, Postoperative Nausea & Vomiting (PONV) Additional Past Anesthesia/Blood Transfusion Reaction / Comment(s): BP dropped post op Smoking Status: Former smoker - Past Family History Mother Family Medical History: Cancer Additional Family Medical History / Comment(s): colon Medications and Allergies Home Medications Medication Instructions Recorded Confirmed Type Cetirizine HCl [Zyrtec Chewable] 10 mg PO DAILY 07/31/14 03/23/19 History Estradiol [Estrace] 1 mg PO DAILY 07/31/14 03/23/19 History Aclidinium [place] [Tudorza 1 puff PO RT-BID 03/06/18 03/23/19 History Pressair] Fluticasone/Vilanterol [Breo 1 inhalation PO RT-DAILY 03/06/18 03/23/19 History Ellipta 100-25 Mcg Inhaler] Acetaminophen Tab [Tylenol Tab] 325 - 650 mg PO Q6H PRN 03/23/19 03/23/19 History Allergies Allergy/AdvReac Type Severity Reaction Status Date / Time codeine Allergy Nausea & Verified 03/23/19 15:11 Vomiting NSAIDS (Non-Steroidal Allergy Anaphylaxis Verified 03/23/19 15:11 Anti-Inflamma clarithromycin [From Biaxin] AdvReac N/V/MIGRAIN Verified 03/23/19 15:11 E levofloxacin [From Levaquin] AdvReac N/V/MIGRAIN Verified 03/23/19 15:11 E
[~2019-03-28 09:04] MED LIST changes: -ACETAMINOPHEN IV (For NPO) 1,000 MG in EMPTY BAG 1 BAG IVPB ONE; -DEXAMETHASONE SOD PHOSPHATE 10 MG/ML 1 ML VIAL IV ONE; -HEPARIN SODIUM,PORCINE 5,000 UNIT/ML 1 ML VIAL SQ ONE; -LIDOCAINE 1% 20 ML VIAL (10MG/ML) FOR IV START INTRADERMA PRN; -MIDAZOLAM 2 MG/2 ML VIAL IV PRN; -SCOPOLAMINE 1.5MG/72HR PATCH TRANSDERM STA; -ceFAZolin IN SWFI 2 GM/20 ML SYRINGE IVP ONE; -fentaNYL (PF) 50 MCG/ML 2 ML AMP IV PRN
[2019-03-28 09:35] VITALS: RESP 16; TEMP 98.6
[2019-03-28] MEDS ORDERED: LIDOCAINE 1% 20 ML VIAL (10MG/ML) FOR IV START INTRADERMA ONE (09:46)
[2019-03-28] MEDS ORDERED: LIDOCAINE 1% INJ 10MG/ML (20 ML MDV) ONE (10:27)
[2019-03-28] MEDS ORDERED: PROPOFOL 10 MG/ML 20 ML VIAL IV ONE (10:27)
--- NOTE | 2019-03-28 10:43 | P.PCN ---
Date of Procedure: 03/28/19 Description of Procedure: PREOPERATIVE DIAGNOSIS: Gastroesophageal reflux disease. POSTOPERATIVE DIAGNOSIS: Gastritis. Gastroesophageal reflux disease. Diaphragmatic hiatal hernia without obstruction. OPERATION: Esophagogastroduodenoscopy with biopsies along antrum SURGEON: Shikha Juarez MD ANESTHESIA: MAC. INDICATIONS: The patient is a 63-year-old female who presents with a history of reflux disease. Benefits and risks of the procedure were described. Informed consent was obtained. DESCRIPTION: The patient was brought into the endoscopy suite and laid in the left lateral decubitus position. An Olympus gastroscope was passed along the posterior oropharynx down to the distal esophagus where the squamocolumnar junction was encountered at 35 cm from the incisors. The stomach was entered and no bile reflux was found. Additional findings are listed below. Biopsies with cold forceps were obtained of the antrum. The first through third portion of the duodenum was examined and unremarkable. Retroflexion of the scope confirmed Hill grade 2 lower esophageal valve. The squamocolumnar junction demostrated LA grade A erosive esophagitis. The stomach was desufflated. The patient tolerated the procedure well. FINDINGS: Squamocolumnar junction 35 cm from the incisors. Diaphragmatic hiatus at 37 cm. Hiatal hernia 2 cm. Hill grade 2 lower esophageal valve. LA grade A erosive esophagitis. No active duodenitis. Mild gastritis. RECOMMENDATIONS: Upper endoscopy as needed. Plan - Discharge Summary Discharge Rx Participant: No New Discharge Prescriptions: No Action Cetirizine HCl [Zyrtec Chewable] 10 mg PO DAILY Estradiol [Estrace] 1 mg PO DAILY Fluticasone/Vilanterol [Breo Ellipta 100-25 Mcg Inhaler] 1 inhalation PO RT- DAILY Aclidinium [place] [Tudorza Pressair] 1 puff PO RT-BID Acetaminophen Tab [Tylenol Tab] 325 - 650 mg PO Q6H PRN PRN Reason: Pain Discharge Medication List Cetirizine HCl [Zyrtec Chewable] 10 mg PO DAILY 07/31/14 [History] Estradiol [Estrace] 1 mg PO DAILY 07/31/14 [History] Aclidinium [place] [Tudorza Pressair] 1 puff PO RT-BID 03/06/18 [History] Fluticasone/Vilanterol [Breo Ellipta 100-25 Mcg Inhaler] 1 inhalation PO RT- DAILY 03/06/18 [History] Acetaminophen Tab [Tylenol Tab] 325 - 650 mg PO Q6H PRN 03/23/19 [History]
--- NOTE | 2019-03-28 11:03 | P.PCN ---
Date of Procedure: 03/28/19 Description of Procedure: PREOPERATIVE DIAGNOSIS: Personal history of multiple high-risk colon polyps Family history colon cancer POSTOPERATIVE DIAGNOSIS: Personal history of multiple high-risk colon polyps Family history colon cancer Multiple tubular adenomas throughout the colon. External hemorrhoids, grade 2 Internal hemorrhoids, grade 2 Scattered diverticulosis OPERATION: Colonoscopy to the ileocecal valve and appendiceal orifice. Colonoscopy with multiple snare biopsies. Colonoscopy with multiple cold forceps biopsies. SURGEON: Shikha Juarez MD. ANESTHESIA: MAC. INDICATIONS: The patient is a 63-year-old female who presents for colonoscopy screening. Last colonoscopy was 1 year ago with multiple high-risk colon polyps excised. Benefits and risks were described and informed consent was obtained. DESCRIPTION OF PROCEDURE: The patient had undergone Suprep colon preparation. She had been brought into the operating room and laid in the left lateral decubitus position. After adequate intravenous sedation, the rectum was examined with 2% lidocaine jelly. External hemorrhoids were encountered. The rectal tone was within normal limits. No lesions were palpated in the rectal vault. An Olympus colonoscope was advanced until the ileocecal valve and appendiceal orifice were clearly viewed. The prep was excellent. Few scattered diverticulosis was encountered. Multiple colonic polyps were found and cold forcep biopsy or snare polypectomy. No evidence of focal colitis was found. Retroflexion of the scope demonstrated grade 2 internal hemorrhoids without active bleeding or inflammation. The colon was desufflated. The patient had tolerated the procedure well. Withdrawal time was over 6 minutes. FINDINGS: Internal hemorrhoids, grade 2 External hemorrhoids, grade 2. No arteriovenous malformations. Removal of 4 polyps: - Snare polypectomy proximal ascending colon, 8 mm flat villous adenoma polyp. - Snare polypectomy mid ascending colon, 8 mm flat villous adenoma polyp. - Cold forceps biopsy at cecum, 5 mm polyp, - Cold forceps biopsy at 30 cm from anal verge, 4 mm polyp, descending colon - Cold forceps biopsy at proximal ascending colon, 4 mm polyp. No focal colitis. Scattered diverticulosis RECOMMENDATIONS: Given severity of tubular adenomas, recommend repeat colonoscopy 3 years, 2021
[2019-03-28 11:31] VITALS: BP 118/82; PULSE 75
== END 2019-03-28 11:52 | disposition home or self-care (01) ==
LOC: ORWHC2ENDO 09:04
PROVIDERS: ATTEND Surgery Plastic and Reconstructive Surgery
DX: Z12.11 Encounter for screening for malignant neoplasm of colon (principal); K29.50 Unspecified chronic gastritis without bleeding; D12.0 Benign neoplasm of cecum; Z80.0 Family history of malignant neoplasm of digestive organs; Z86.010 Personal history of colon polyps; K21.9 Gastro-esophageal reflux disease without esophagitis; K29.70 Gastritis, unspecified, without bleeding; K44.9 Diaphragmatic hernia without obstruction or gangrene; K57.90 Diverticulosis of intestine, part unspecified, without perforation or abscess without bleeding; K64.1 Second degree hemorrhoids; K64.4 Residual hemorrhoidal skin tags; K31.9 Disease of stomach and duodenum, unspecified
CPT/HCPCS: 88305; 45380; 45385; 43239; J2001; J2704

== ENCOUNTER → 2019-12-25 | Outpatient (CLI) | payer BC ==
--- NOTE | 2019-12-25 14:10 | MM ---
Reason for exam: additional evaluation requested from prior study. Last mammogram was performed 1 year ago. History: Patient is postmenopausal. Family history of breast cancer in 2 paternal aunts at age 50. Taking estrogen for 17 years 6 months beginning at age 43. Physical Findings: Nurse did not find any significant physical abnormalities on exam. MG Diagnostic Mammo w CAD [facility] Bilateral CC and MLO view(s) were taken. Prior study comparison: December 21, 2018, bilateral MG screening mammo w CAD. December 05, 2017, bilateral MG screening mammo w CAD. The breast tissue is heterogeneously dense. This may lower the sensitivity of mammography. Benign appearing bilateral calcifications. No suspicious abnormality. These results were verbally communicated with the patient and result sheet given to the patient on 12/25/19. ASSESSMENT: Incomplete: need additional imaging evaluation, BI-RAD 0 RECOMMENDATION: Ultrasound of the left breast. (lateral area of pain)
--- NOTE | 2019-12-25 14:15 | USB ---
Reason for exam: additional evaluation requested from abnormal screening. History: Patient is postmenopausal. Family history of breast cancer in 2 paternal aunts at age 50. Taking estrogen for 17 years 6 months beginning at age 43. US Breast Limited LT Left limited breast ultrasound including focal area of concern, retroareolar and axilla demonstrates a 7 x 5 x 5mm lobular, mixed, complicated cyst at 2 o'clock and a 5 x 3 x 5mm oval, cystic lesion at 3 o'clock. These results were verbally communicated with the patient and result sheet given to the patient on 12/25/19. ASSESSMENT: Benign, BI-RAD 2 RECOMMENDATION: Routine screening mammogram of both breasts in 1 year. Manage patient on a clinical basis.
== END | disposition home or self-care (01) ==
LOC: RADMAMWWP 12:57
PROVIDERS: ATTEND Obstetrics & Gynecology
DX: N64.4 Mastodynia (principal); R92.8 Other abnormal and inconclusive findings on diagnostic imaging of breast
CPT/HCPCS: 77066

== ENCOUNTER → 2020-04-14 | Outpatient (CLI) | payer BC ==
--- NOTE | 2020-04-14 09:14 | MR ---
EXAMINATION TYPE: MR shoulder RT wo con DATE OF EXAM: 04/14/2020 COMPARISON: Right shoulder x-ray April 03, 2020 HISTORY: Painful Right Shoulder. Cannot lift or straighten arm. TECHNIQUE: Multiplanar, multisequence imaging of the right shoulder is performed without contrast. FINDINGS: Rotator Cuff: Complete full-thickness retracted tear of at least majority of the supraspinatus tendon with tendon gap identified coronal images 10 through 13 and sagittal image 6. Perhaps a few anterior and marked posterior fibers remain intact but significant portion at least 80% shows full-thickness retraction tear. Infraspinatus tendon remains intact. Subscapularis tendon is intact with some surrou nding fluid. Rotator cuff muscle bulk is preserved. Acromioclavicular Joint: Moderate narrowing with mild capsular hypertrophy. Underlying fat plane main tained. Slight type II downsloping acromion noted. Glenohumeral Joint: Small to moderate joint effusion extending superiorly and laterally. Moderate to borderline severe narrowing. No significant spurring. Labrum: The labrum appears grossly intact given limitation of non-arthrogram study. Biceps Tendon: The long head of biceps is in normal location within bicipital groove. Bone marrow signal: No focal abnormal marrow signal is appreciated. Other: Prominent fluid subdeltoid/subacromial bursa extending inferiorly. IMPRESSION: 1. Significant full-thickness retracted tear of the supraspinatus tendon suspected more acute/subacut e in age as detailed above.
== END | disposition home or self-care (01) ==
LOC: RADMRIMAIN 07:59
PROVIDERS: ATTEND Orthopaedic Surgery
DX: M75.121 Complete rotator cuff tear or rupture of right shoulder, not specified as traumatic (principal)

== ENCOUNTER → 2020-05-09 | Day surgery (SDC) | payer BC ==
[2020-05-08 08:33] VITALS: BMI 25.0
--- NOTE | 2020-05-08 10:02 | HP ---
HISTORY AND PHYSICAL CHIEF COMPLAINT: Right shoulder pain. 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 She is having pain with overhead use and activity. She has tried medications and rest without much relief. She denies significant previous problems. PAST MEDICAL HISTORY: Significant for COPD. PAST SURGICAL HISTORY: Significant for previous knee surgery, varicose vein stripping, sinus surgery, and hernia repair. CURRENT MEDICATIONS: Symbicort, estradiol. She has allergies to BIAXIN, ANTI-INFLAMMATORIES, LEVAQUIN and CODEINE. FAMILY HISTORY: Significant for heart disease. SOCIAL HISTORY: Significant for previous tobacco use; however, she quit in 1997. 16 POINT REVIEW OF SYSTEMS: Otherwise reviewed and is noncontributory. PHYSICAL EXAMINATION: On examination, the patient is approximately 5 foot 5, 155 pounds of mesomorphic habitus. HEENT: Exam is nonfocal. NECK: Supple. On examination of her right shoulder, she is tender about the anterior subacromial space. She has moderate subacromial crepitus. Active range of motion, forward elevation 50 degrees, external rotation with the arm side 65 degrees, internal rotation to T11. Passively forward elevate her to 150 degrees. Motor strength is 3/5 for abduction, 5-/5 for external rotation. Impingement test, Neer test, and Speed tests are positive. Her distal neurovascular exam appears intact in the right upper extremity. MRI report right shoulder shows evidence of a supraspinatus tear with some retraction. IMPRESSION: 1. Symptomatic right rotator cuff tear. 2. Chronic obstructive pulmonary disease. RECOMMENDATIONS: I talked to the patient at length regarding her condition along with treatment options. At this point, she is quite symptomatic and limited with pain and weakness along with limited motion. After thorough discussion, she opts to proceed with surgery. Will plan to proceed with arthroscopic evaluation with probable subacromial decompression and rotator cuff repair. Risks and benefits were discussed at length in layman's terms. MMODL / IJN: [id number] /
[~2020-05-09] MED LIST changes: +DEXAMETHASONE SOD PHOSPHATE 10 MG/ML 1 ML VIAL IV ONE; +EPINEPHrine (PF) 1 ML in SODIUM CHLORIDE 0.9% IRRIGATIO 3,000 ML IRRIGATION ONE; +LACTATED RINGERS 1,000 ML IV ONE; +LIDOCAINE 1% (10MG/ML) FOR IV START INTRADERMA PRN; +LIDOCAINE 1% INJ 10MG/ML (20 ML MDV) ONE; +MIDAZOLAM 2 MG/2 ML VIAL IV PRN; +MIDAZOLAM 2 MG/2 ML VIAL ONE; +PHENYLEPHRINE-0.9% NACL SYG 1 MG/10 ML SYRINGE ONE; +PROPOFOL 10 MG/ML 20 ML VIAL IV ONE; +ROPIVACAINE 5 MG/ML 30 ML VIAL ONE; +SCOPOLAMINE 1.5MG/72HR PATCH TRANSDERM ONE; +SUCCINYLCHOLINE CHLORIDE 100 MG/5 ML SYR IV ONE; +fentaNYL (PF) 50 MCG/ML 2 ML AMP IV PRN; +fentaNYL (PF) 50 MCG/ML 2 ML AMP ONE
[2020-05-09] MEDS: ONDANSETRON 4 MG/2 ML VIAL IVP ONE ×2 (10:28→14:13)
--- NOTE | 2020-05-09 12:27 | P.ANPRN ---
Procedure Note - Anesthesia - Nerve Block Performed Right Interscalene Single Time Out Performed: Yes (1049) Date of Procedure: 05/09/20 Procedure Start Time: 10:50 Procedure Stop Time: 10:56 Location of Patient: PreOp Indication: Acute Post-Operative Pain, Requested by Surgeon Specifically requested for management of pain by : Sidney Faye Sedation Type: Sedate with meaningful contact maintained Preparation: Sterile Prep Position: Supine Catheter: None Needle Types: Pajunk Needle Gauge: 21 Ultrasound used to visualize needle placement: Yes Ultrasound used to observe medication spread: Yes Injectate: 0.5% Ropivacaine (see comment for volume) Blood Aspirated: No Pain Paresthesia on Injection Noted: No Resistance on Injection: Normal Image Stored and Saved: Yes Events: Uneventful and Well Tolerated
--- NOTE | 2020-05-09 13:25 | P.OP ---
Date of Procedure: 05/09/20 Preoperative Diagnosis: Symptomatic right rotator cuff tear Postoperative Diagnosis: 4 cm rotator cuff tear/acromioclavicular joint arthritis/impingement Procedure(s) Performed: Right shoulder arthroscopic subacromial decompression/distal clavicular resect ion/rotator cuff repair Implants: Arthrex 4.75 mm swivel lock anchor 2, 5.5 mm swivel lock anchor 2 Anesthesia: MADDIE, sheila Surgeon: Sidney Faye Physiotherapist'S Assistant #1: Pola Kenyon Estimated Blood Loss (ml): 10 Pathology: none sent Condition: stable Disposition: PACU Indications for Procedure: The patient's a 64-year-old female who presents with progressive right shoulder pain despite conservative measures. A discussion of the risks and benefits of operative intervention versus continued conservative measures was made with the patient. She opted to proceed with surgery. Operative risks to include infection, neurovascular injury, development of blood clots, possible tendon rerupture, possible need for subsequent procedures was discussed. Informed consent was obtained. Operative Findings: As below Description of Procedure: The patient was brought to the operating room, and after induction of general anesthesia was placed in a beachchair position. A preoperative interscalene block was placed for postoperative analgesia. I examined the right shoulder. There was no gross block to passive motion or gross glenohumeral instability. The right upper extremity was prepped and draped in normal fashion. The bony outlines the acromion, distal clavicle, and coracoid process were outlined with a skin marker. The glenohumeral joint was inflated with 50 mL of saline utilizing a spinal needle from posterior approach. A posterior portal was made through a 5 mm skin incision 1 cm medial and inferior to the posterior lateral border time. A blunt trocar was used to easily into the joint. Diagnostic arthroscopy was performed. An anterior portal was made just lateral to the coracoid process entering the joint above the subscapularis tendon. The subscapularis tendon appeared to be intact. Anterior labrum was intact. The inferior recess was inspected. The posterior labrum was intact. There was a high-grade partial-thickness tear of the long head of the biceps involving interarticular portion. Was elected to proceed with release at this point. This was released from the superior labrum with electrocautery and was allowed to retract to the bicipital groove. On inspection the rotator cuff, a 4 cm tear was noted involving the rotator cuff with mild retraction.. A lateral portal was made 2 centimeters inferior to the anterior lateral border of the acromion. The rotator cuff was then mobilized with a traction suture. This was then easily brought back to the greater tuberosity. The soft tissue on the undersurface of the acromion was debrided with a motorized shaver and electrocautery clearly defining the anterior medial and lateral borders as well as the distal clavicle. An anterior inferior acromioplasty was performed with a motorized princess starting anterolateral, then extending this posteriorly, then extending this medially. I converted to a flat acromion and this was verified in the posterior and lateral viewing portals. The distal 4 mm of the clavicle was resected with a motorized bur. The greater tuberosity was lightly decorticating with a shaver down to a bleeding bony surface. An accessory superior lateral portals made just off the lateral edge of the acromion for anchor placement. 2 anchors were then placed just off the articular surface with the appropriate starting awl. 4.75 mm anchors preloaded with #2 fiber tape were placed. Good purchase was obtained. These fiber tapes were then passed the rotator cuff with a scorpion suture passer. A lateral row was created crisscrossing these tapes. 5.5 mm swivel lock anchors 2 were placed laterally. Good purchase was obtained. Final arthroscopic view showed adequate compression at the footprint. The arthroscope was then removed. The portals were closed with simple 3-0 nylon sutures. A sterile dressing was applied in addition to an abductor brace. The patient was then awoken from general anesthesia and transferred to recovery room in good condition. Blood loss was estimated at 10 mL. No complications were incurred. Sponge and needle counts were correct in the case. Clint BARCLAY assisted and the major components of the case to include arm positioning, anchor placement, and rotator cuff repair.
[2020-05-09 13:41] VITALS: TEMP 97.1
[2020-05-09] MEDS: HYDROmorphone 0.5 MG/0.5 ML SYRINGE IVP PRN ×2 (14:13→14:24)
[2020-05-09 14:37] VITALS: RESP 17
[2020-05-09 14:43] VITALS: BP 122/88; PULSE 77
== END | disposition home or self-care (01) ==
LOC: OR 09:51
PROVIDERS: ATTEND Orthopaedic Surgery
DX: M75.101 Unspecified rotator cuff tear or rupture of right shoulder, not specified as traumatic (principal); M19.011 Primary osteoarthritis, right shoulder; M75.41 Impingement syndrome of right shoulder; S46.111A Strain of muscle, fascia and tendon of long head of biceps, right arm, initial encounter; J44.9 Chronic obstructive pulmonary disease, unspecified; I27.20 Pulmonary hypertension, unspecified; K21.9 Gastro-esophageal reflux disease without esophagitis; K44.9 Diaphragmatic hernia without obstruction or gangrene; J30.2 Other seasonal allergic rhinitis; G43.909 Migraine, unspecified, not intractable, without status migrainosus; E07.9 Disorder of thyroid, unspecified; Z79.51 Long term (current) use of inhaled steroids; Z79.890 Hormone replacement therapy; Z88.5 Allergy status to narcotic agent; Z88.1 Allergy status to other antibiotic agents; Z88.6 Allergy status to analgesic agent; Z88.8 Allergy status to other drugs, medicaments and biological substances; Z87.891 Personal history of nicotine dependence; Z98.890 Other specified postprocedural states; Z90.710 Acquired absence of both cervix and uterus; Z90.722 Acquired absence of ovaries, bilateral; Z91.048 Other nonmedicinal substance allergy status; Z82.49 Family history of ischemic heart disease and other diseases of the circulatory system
CPT/HCPCS: 64415; 76942; 29827; 29826; 29824; C1713 ×2; J2250; J1100; J2405; J0690; J0171; J2001; J3010; J2795; J2370; J0330; J2704; J1170

== ENCOUNTER 2020-11-18 06:00 | Emergency (ER) | payer BC ==
[2020-11-18 06:10] VITALS: RESP 18; TEMP 98.4
[2020-11-18] MEDS ORDERED: ONDANSETRON 4 MG/2 ML VIAL IVP STA (06:28)
[2020-11-18] MEDS ORDERED: SODIUM CHLORIDE 0.9% 1,000 ML IV ONE (06:28)
--- NOTE | 2020-11-18 06:32 | ED ---
General Adult HPI - General Chief complaint: Nausea/Vomiting/Diarrhea Stated complaint: +COVID,weakness Time Seen by Provider: 11/18/20 06:13 Source: patient, RN notes reviewed Mode of arrival: ambulatory Limitations: no limitations - History of Present Illness Initial comments: This a 65-year-old female presents emergency Department chief complaint of nausea vomiting, dehydration, positive covid. Patient states that she was diagnosed 2 weeks ago patient states that she had some low-grade fevers and chills. Patient states that she has no shortness of breath, baseline she has known COPD. She has any chest pain no abdominal pain other than mild cramping. No diarrhea. Patient states that he only drinks water recently she's been unable to much. She states she just feels dehydrated, weak. She has no dysuria no hematuria no headache no dizziness. - Related Data Home Medications Medication Instructions Recorded Confirmed Estradiol [Estrace] 1 mg PO DAILY 07/31/14 11/18/20 Budesonide/Formoterol Fumarate 2 puff INHALATION RT-BID 05/08/20 11/18/20 [Symbicort 160-4.5 Mcg Inhaler] Cetirizine HCl 10 mg PO DAILY 05/08/20 11/18/20 Escitalopram [Lexapro] 5 mg PO DAILY 11/18/20 11/18/20 Previous Rx's Medication Instructions Recorded Ondansetron Odt [Zofran Odt] 4 mg PO Q8HR PRN #20 tab 11/18/20 Allergies Allergy/AdvReac Type Severity Reaction Status Date / Time adhesive tape Allergy tears Verified 11/18/20 08:14 skin,paper tape is ok codeine Allergy Nausea & Verified 11/18/20 08:14 Vomiting NSAIDS (Non-Steroidal Allergy Anaphylaxis Verified 11/18/20 08:14 Anti-Inflamma clarithromycin [From Biaxin] AdvReac N/V/MIGRAIN Verified 11/18/20 08:14 E levofloxacin [From Levaquin] AdvReac N/V/MIGRAIN Verified 11/18/20 08:14 E Review of Systems ROS Statement: Those systems with pertinent positive or pertinent negative responses have been documented in the HPI. ROS Other: All systems not noted in ROS Statement are negative. Past Medical History Past Medical History: COPD, GERD/Reflux, Thyroid Disorder, Vascular Disorder Additional Past Medical History / Comment(s): hx of colon polyps, past hx migraines, hx goiters/thyroid nodules, HX VARICOSE VEINS, STATES "BAD CIRCULATION" History of Any Multi-Drug Resistant Organisms: None Reported Past Surgical History: Section, Heart Catheterization, Hernia Repair, Hysterectomy, Orthopedic Surgery Additional Past Surgical History / Comment(s): jewel funlaplasty, COLONOSCOPY, THYROID BIOPSY, jv arthroscopy knee surgery (rt x 2), sinus surgery to remove polyps, jv inguinal hernia, VEIN STRIPPING Past Anesthesia/Blood Transfusion Reactions: Previous Problems w/ Anesthesia, Motion Sickness, Postoperative Nausea & Vomiting (PONV) Additional Past Anesthesia/Blood Transfusion Reaction / Comment(s): BP dropped post op Past Psychological History: No Psychological Hx Reported Smoking Status: Former smoker Past Alcohol Use History: None Reported Past Drug Use History: None Reported - Past Family History Mother Family Medical History: Cancer Additional Family Medical History / Comment(s): colon General Exam Limitations: no limitations General appearance: alert, in no apparent distress Head exam: Present: atraumatic, normocephalic, normal inspection Eye exam: Present: normal appearance, PERRL, EOMI. Absent: scleral icterus, conjunctival injection, periorbital swelling ENT exam: Present: normal exam, normal oropharynx, mucous membranes moist Neck exam: Present: normal inspection, full ROM. Absent: tenderness, meningismus, lymphadenopathy Respiratory exam: Present: normal lung sounds bilaterally. Absent: respiratory distress, wheezes, rales, rhonchi, stridor Cardiovascular Exam: Present: regular rate, normal rhythm, normal heart sounds. Absent: systolic murmur, diastolic murmur, rubs, gallop, clicks GI/Abdominal exam: Present: soft, tenderness (Minimal), normal bowel sounds. Absent: distended, guarding, rebound, rigid Back exam: Absent: CVA tenderness (R), CVA tenderness (L) Neurological exam: Present: alert, oriented X3 Skin exam: Present: warm, dry, intact, normal color. Absent: rash Course Vital Signs 11/18/20 11/18/20 06:06 10:11 Temperature 98.4 F Pulse Rate 90 77 Respiratory 18 18 Rate Blood Pressure 112/80 116/77 O2 Sat by Pulse 92 L 98 Oximetry Medical Decision Making - Medical Decision Making Patient is improved after IV fluids, antiemetics she had no recurrent vomiting. Patient has covid but is not hypoxic, no respiratory distress. Patient was discharged in stable condition return parameters discussed. Does have underlying COPD. - Lab Data Result diagrams: 11/18/20 06:30 11/18/20 09:46 Lab Results 11/18/20 11/18/20 11/18/20 Range/Units 06:30 06:30 06:30 WBC 8.5 (3.8-10.6) k/uL RBC 5.41 H (3.80-5.40) m/uL Hgb 17.6 H (11.4-16.0) gm/dL Hct 51.1 H (34.0-46.0) % MCV 94.4 (80.0-100.0) fL MCH 32.6 (25.0-35.0) pg MCHC 34.5 (31.0-37.0) g/dL RDW 13.4 (11.5-15.5) % Plt Count 237 (150-450) k/uL MPV 6.8 Neutrophils % 79 % Lymphocytes % 11 % Monocytes % 6 % Eosinophils % 1 % Basophils % 1 % Neutrophils # 6.7 (1.3-7.7) k/uL Lymphocytes # 1.0 (1.0-4.8) k/uL Monocytes # 0.5 (0-1.0) k/uL Eosinophils # 0.1 (0-0.7) k/uL Basophils # 0.1 (0-0.2) k/uL PT 10.0 (9.0-12.0) sec INR 1.0 (<1.2) APTT 26.0 (22.0-30.0) sec Sodium (137-145) mmol/L Potassium (3.5-5.1) mmol/L Chloride (98-107) mmol/L Carbon Dioxide (22-30) mmol/L Anion Gap mmol/L BUN (7-17) mg/dL Creatinine (0.52-1.04) mg/dL Est GFR (CKD-EPI)AfAm (>60 ml/min/1.73 sqM) Est GFR (CKD-EPI)NonAf (>60 ml/min/1.73 sqM) Glucose (74-99) mg/dL Plasma Lactic Acid Bola 0.9 (0.7-2.0) mmol/L Calcium (8.4-10.2) mg/dL Magnesium (1.6-2.3) mg/dL Total Bilirubin (0.2-1.3) mg/dL AST (14-36) U/L ALT (4-34) U/L Alkaline Phosphatase (38-126) U/L Lactate Dehydrogenase (313-618) U/L C-Reactive Protein (<10.0) mg/L Total Protein (6.3-8.2) g/dL Albumin (3.5-5.0) g/dL 11/18/20 11/18/20 Range/Units 06:30 09:46 WBC (3.8-10.6) k/uL RBC (3.80-5.40) m/uL Hgb (11.4-16.0) gm/dL Hct (34.0-46.0) % MCV (80.0-100.0) fL MCH (25.0-35.0) pg MCHC (31.0-37.0) g/dL RDW (11.5-15.5) % Plt Count (150-450) k/uL MPV Neutrophils % % Lymphocytes % % Monocytes % % Eosinophils % % Basophils % % Neutrophils # (1.3-7.7) k/uL Lymphocytes # (1.0-4.8) k/uL Monocytes # (0-1.0) k/uL Eosinophils # (0-0.7) k/uL Basophils # (0-0.2) k/uL PT (9.0-12.0) sec INR (<1.2) APTT (22.0-30.0) sec Sodium 139 (137-145) mmol/L Potassium 4.2 (3.5-5.1) mmol/L Chloride 108 H (98-107) mmol/L Carbon Dioxide 26 (22-30) mmol/L Anion Gap 5 mmol/L BUN 10 (7-17) mg/dL Creatinine 0.73 (0.52-1.04) mg/dL Est GFR (CKD-EPI)AfAm >90 (>60 ml/min/1.73 sqM) Est GFR (CKD-EPI)NonAf 88 (>60 ml/min/1.73 sqM) Glucose 96 (74-99) mg/dL Plasma Lactic Acid Bola (0.7-2.0) mmol/L Calcium 8.3 L (8.4-10.2) mg/dL Magnesium 1.9 (1.6-2.3) mg/dL Total Bilirubin 0.5 (0.2-1.3) mg/dL AST 53 H (14-36) U/L ALT 40 H (4-34) U/L Alkaline Phosphatase 187 H (38-126) U/L Lactate Dehydrogenase 465 (313-618) U/L C-Reactive Protein 62.7 H (<10.0) mg/L Total Protein 6.1 L (6.3-8.2) g/dL Albumin 3.1 L (3.5-5.0) g/dL Disposition Clinical Impression: COVID-19, Nausea & vomiting Disposition: HOME SELF-CARE Condition: Stable Instructions (If sedation given, give patient instructions): Acute Nausea and Vomiting (ED) Additional Instructions: Please return to the Emergency Department if symptoms worsen or any other concerns. Prescriptions: Ondansetron Odt [Zofran Odt] 4 mg PO Q8HR PRN #20 tab PRN Reason: Nausea Is patient prescribed a controlled substance at d/c from ED?: No Referrals: Otto Rodriguez DO [Primary Care Provider] - 1-2 days Time of Disposition: 10:18
[2020-11-18 06:42] LABS: Basophils # (A) 0.1 k/uL (0-0.2); Basophils % (A) 1 %; Eosinophils # (A) 0.1 k/uL (0-0.7); Eosinophils % (A) 1 %; HCT 51.1 % (34.0-46.0); HGB 17.6 gm/dL (11.4-16.0); Lymphocytes % (A) 11 %; MCH 32.6 pg (25.0-35.0); MCHC 34.5 g/dL (31.0-37.0); MCV 94.4 fL (80.0-100.0); Mean Platelet Volume 6.8; Monocytes # (A) 0.5 k/uL (0-1.0); Monocytes % (A) 6 %; Neutrophils # (A) 6.7 k/uL (1.3-7.7); Neutrophils % (A) 79 %; Platelet Count 237 k/uL (150-450); RBC 5.41 m/uL (3.80-5.40); RDW 13.4 % (11.5-15.5); WBC 8.5 k/uL (3.8-10.6)
[2020-11-18 06:52] LABS: C Reactive Protein 62.7 mg/L (<10.0); Magnesium 1.9 mg/dL (1.6-2.3)
--- NOTE | 2020-11-18 07:14 | XR ---
EXAM: XR Chest, 1 View CLINICAL HISTORY: Suspected COVID-19 pneumonia TECHNIQUE: Frontal view of the chest. COMPARISON: 05/23/2017. FINDINGS: Lungs: Bibasilar atelectasis and/or infiltrates, right greater the left. Pleural space: Trace left pleural effusion. No pneumothorax. Heart: Unremarkable. No cardiomegaly. Mediastinum: Unremarkable. Bones/joints: Unremarkable. IMPRESSION: 1. Bibasilar atelectasis and/or infiltrates, right greater the left. 2. Trace left pleural effusion.
[2020-11-18] MEDS ORDERED: diphenhydrAMINE 50 MG/ML 1 ML VIAL IVP STA (08:00)
[2020-11-18] MEDS ORDERED: METOCLOPRAMIDE 5 MG/ML 2 ML VIAL IVP STA (08:00)
[2020-11-18 10:10] LABS: ALT 40 U/L (4-34); AST 53 U/L (14-36); African American GFR (CKD) >90 (>60 ml/min/1.73 sqM); Albumin 3.1 g/dL (3.5-5.0); Alkaline Phosphatase 187 U/L (38-126); Anion Gap 5 mmol/L; Blood Urea Nitrogen 10 mg/dL (7-17); Calcium 8.3 mg/dL (8.4-10.2); Carbon Dioxide 26 mmol/L (22-30); Chloride 108 mmol/L (98-107); Glucose 96 mg/dL (74-99); Non-African American GFR(CKD) 88 (>60 ml/min/1.73 sqM); Potassium 4.2 mmol/L (3.5-5.1); Sodium 139 mmol/L (137-145); Total Bilirubin 0.5 mg/dL (0.2-1.3); Total Protein 6.1 g/dL (6.3-8.2)
[2020-11-18 10:30] VITALS: BP 118/69; PULSE 78
== END 2020-11-18 10:30 | disposition home or self-care (01) ==
LOC: EC 06:00
DX: U07.1 COVID-19 (principal); J44.9 Chronic obstructive pulmonary disease, unspecified; Z79.51 Long term (current) use of inhaled steroids; Z79.890 Hormone replacement therapy; Z91.048 Other nonmedicinal substance allergy status; Z88.5 Allergy status to narcotic agent; Z88.6 Allergy status to analgesic agent; Z88.1 Allergy status to other antibiotic agents; Z87.19 Personal history of other diseases of the digestive system; Z98.890 Other specified postprocedural states; Z87.891 Personal history of nicotine dependence
CPT/HCPCS: 36415; 80053; 82728; 83605; 83615; 83735; 85025; 85610; 85730; 86140; 71045; 99285; 96374; 96375 ×2; 96361 ×4; J1200; J2765; J2405

== ENCOUNTER → 2021-01-15 | Outpatient (CLI) | payer BC ==
--- NOTE | 2021-01-16 14:03 | MM ---
Reason for exam: screening (asymptomatic). Last mammogram was performed 1 year and 1 month ago. History: Patient is postmenopausal. Family history of breast cancer in 2 paternal aunts at age 50. Taking estrogen for 17 years 6 months beginning at age 43. Physical Findings: A clinical breast exam by your physician is recommended on an annual basis and results should be correlated with mammographic findings. MG Screening Mammo w CAD Bilateral CC and MLO view(s) were taken. Prior study comparison: December 25, 2019, bilateral MG diagnostic mammo w CAD [facility]. December 21, 2018, bilateral MG screening mammo w CAD. The breast tissue is heterogeneously dense. This may lower the sensitivity of mammography. There is no discrete abnormality. No significant changes when compared with prior studies. ASSESSMENT: Negative, BI-RAD 1 RECOMMENDATION: Routine screening mammogram of both breasts in 1 year.
== END | disposition home or self-care (01) ==
LOC: RADMAMWWP 07:14
PROVIDERS: ATTEND Obstetrics & Gynecology
DX: Z12.31 Encounter for screening mammogram for malignant neoplasm of breast (principal)
CPT/HCPCS: 77067

== ENCOUNTER → 2021-06-30 | Outpatient (CLI) | payer BC ==
--- NOTE | 2021-06-30 14:27 | CT ---
EXAMINATION TYPE: CT abdomen pelvis w con DATE OF EXAM: 06/30/2021 HISTORY: pancreatic mass CT DLP: 1408mGycm Automated Exposure Control for Dose Reduction was Utilized. CONTRAST: CT scan of the abdomen and pelvis is performed with oral contrast and with IV Contrast, patient injec jeannine with 100 mL of Isovue 370. Pancreatic protocol. COMPARISON: Prior CT June 20, 2018 FINDINGS: LUNG BASES: No significant abnormality is appreciated. LIVER/GB: No significant abnormality is appreciated. PANCREAS: Slight interval growth in the oval low dense lesion inferior pancreatic body axial image 18 and coronal image 26 measuring 1.3 x 0.9 x 0.7 cm. No new solid or cystic masses. No ductal dilatati on. SPLEEN: No significant abnormality is seen. ADRENALS: No significant abnormality is seen. KIDNEYS: No significant abnormality is seen. BOWEL: No significant abnormality is seen. UTERUS/ADNEXA: Uterus surgically absent. LYMPH NODES: No greater than 1cm abdominal or pelvic lymph nodes are appreciated. OSSEOUS STRUCTURES: No significant abnormality is seen. OTHER: No significant additional abnormality is seen. IMPRESSION: Slight interval growth since 2018 in the thin-walled cyst or cystic lesion inferior pancr eatic body now measuring 1.3 cm long axis. Continued annual surveillance advised.
== END | disposition home or self-care (01) ==
LOC: RADCTMAIN 11:26
PROVIDERS: ATTEND Family Medicine
DX: K86.9 Disease of pancreas, unspecified (principal)
CPT/HCPCS: 74177; Q9967

== ENCOUNTER 2022-05-06 07:53 | Day surgery (SDC) | payer BC ==
[~2022-05-06 07:53] MED LIST changes: -DEXAMETHASONE SOD PHOSPHATE 10 MG/ML 1 ML VIAL IV ONE; -EPINEPHrine (PF) 1 ML in SODIUM CHLORIDE 0.9% IRRIGATIO 3,000 ML IRRIGATION ONE; -LACTATED RINGERS 1,000 ML IV ONE; -LIDOCAINE 1% (10MG/ML) FOR IV START INTRADERMA PRN; -LIDOCAINE 1% INJ 10MG/ML (20 ML MDV) ONE; -MIDAZOLAM 2 MG/2 ML VIAL IV PRN; -MIDAZOLAM 2 MG/2 ML VIAL ONE; -PHENYLEPHRINE-0.9% NACL SYG 1 MG/10 ML SYRINGE ONE; -PROPOFOL 10 MG/ML 20 ML VIAL IV ONE; -ROPIVACAINE 5 MG/ML 30 ML VIAL ONE; -SCOPOLAMINE 1.5MG/72HR PATCH TRANSDERM ONE; -SUCCINYLCHOLINE CHLORIDE 100 MG/5 ML SYR IV ONE; -fentaNYL (PF) 50 MCG/ML 2 ML AMP IV PRN; -fentaNYL (PF) 50 MCG/ML 2 ML AMP ONE
--- NOTE | 2022-05-06 08:03 | P.GSHP ---
History of Present Illness H&P Date: 05/06/22 CHIEF COMPLAINT: GERD and colon screen HISTORY OF PRESENT ILLNESS: The patient is a 66-year-old female who presents with gastroesophageal reflux disease and need for colon screen. Upper and lower endoscopy were offered for further evaluation and management. PAST MEDICAL HISTORY: Please see list. PAST SURGICAL HISTORY: Please see list. MEDICATIONS: Please see list. ALLERGIES: Please see list. SOCIAL HISTORY: No illicit drug use FAMILY HISTORY: No reports of Crohn disease or ulcerative colitis. REVIEW OF ORGAN SYSTEMS: CONSTITUTIONAL: No reports of fevers or chills. GI: Denies any blood in stools or constipation. PHYSICAL EXAM: VITAL SIGNS: Stable GENERAL: Well-developed pleasant in no acute distress. HEENT: No scleral icterus. Extraocular movements grossly intact. Moist buccal mucosa. NECK: Supple without lymphadenopathy. CHEST: Unlabored respirations. Equal bilateral excursions. CARDIOVASCULAR: Regular rate and rhythm. Distal 2+ pulses. ABDOMEN: Soft, nondistended. MUSCULOSKELETAL: No clubbing, cyanosis, or edema. ASSESSMENT: 1. Gastroesophageal reflux disease 2. Colon screen. PLAN: 1. Recommend proceeding with an upper and lower endoscopy Past Medical History Past Medical History: COPD, GERD/Reflux, Thyroid Disorder, Vascular Disorder Additional Past Medical History / Comment(s): hx of colon polyps, past hx migraines, hx goiters/thyroid nodules, HX VARICOSE VEINS, STATES "BAD CIRCULATION" ( rt leg surgery) History of Any Multi-Drug Resistant Organisms: None Reported Past Surgical History: Section, Heart Catheterization, Hernia Repair, Hysterectomy, Orthopedic Surgery Additional Past Surgical History / Comment(s): jewel funlaplasty, COLONOSCOPY, THYROID BIOPSY, jv arthroscopy knee surgery (rt x 2), sinus surgery to remove polyps, jv inguinal hernia, VEIN STRIPPING rt leg Past Anesthesia/Blood Transfusion Reactions: Previous Problems w/ Anesthesia, Motion Sickness, Postoperative Nausea & Vomiting (PONV) Additional Past Anesthesia/Blood Transfusion Reaction / Comment(s): BP dropped post op Smoking Status: Former smoker - Past Family History Mother Family Medical History: Cancer Additional Family Medical History / Comment(s): colon Medications and Allergies Home Medications Medication Instructions Recorded Confirmed Type Estradiol [Estrace] 1 mg PO DAILY 07/31/14 05/04/22 History Budesonide/Formoterol Fumarate 2 puff INHALATION RT-BID 05/08/20 05/04/22 History [Symbicort 160-4.5 Mcg Inhaler] Escitalopram [Lexapro] 5 mg PO DAILY 11/18/20 05/04/22 History Ondansetron Odt [Zofran Odt] 4 mg PO Q8HR PRN #20 tab 11/18/20 05/04/22 Rx Allergies Allergy/AdvReac Type Severity Reaction Status Date / Time adhesive tape Allergy tears Verified 05/04/22 14:19 skin,paper tape is ok codeine Allergy Nausea & Verified 05/04/22 14:19 Vomiting NSAIDS (Non-Steroidal Allergy Anaphylaxis Verified 05/04/22 14:19 Anti-Inflamma clarithromycin [From Biaxin] AdvReac N/V/MIGRAIN Verified 05/04/22 14:19 E levofloxacin [From Levaquin] AdvReac N/V/MIGRAIN Verified 05/04/22 14:19 E
[2022-05-06 08:18] VITALS: TEMP 96.8
[2022-05-06] MEDS ORDERED: ONDANSETRON 4 MG/2 ML VIAL ONE (08:42)
[2022-05-06] MEDS ORDERED: ONDANSETRON 4 MG/2 ML VIAL IVP ONE (08:43)
[2022-05-06] MEDS ORDERED: PROPOFOL 10 MG/ML 20 ML VIAL IV ONE (09:07)
[2022-05-06] MEDS ORDERED: LIDOCAINE 2% INJ 20 MG/ML (2 ML VIAL) ONE (09:07)
--- NOTE | 2022-05-06 09:26 | P.PCN ---
Date of Procedure: 05/06/22 Description of Procedure: PREOPERATIVE DIAGNOSIS: Gastroesophageal reflux disease. Epigastric abdominal pain POSTOPERATIVE DIAGNOSIS: Gastroesophageal reflux disease. Gastritis. Diaphragmatic hiatal hernia OPERATION: Esophagogastroduodenoscopy with biopsies along antrum and duodenum SURGEON: Shikha Juarez MD ANESTHESIA: MAC. INDICATIONS: The patient is a 66-year-old female who presents with reflux disease. Benefits and risks of the procedure were described. Informed consent was obtained. DESCRIPTION: The patient was brought into the endoscopy suite and laid in the left lateral decubitus position. An Olympus gastroscope was passed along the posterior oropharynx down to the distal esophagus where the squamocolumnar junction was encountered at 36 cm from the incisors. The stomach was entered and no bile reflux was found. Additional findings are listed below. Biopsies with cold forceps were obtained of the antrum. The first through third portion of the duodenum was examined. Retroflexion of the scope confirmed Hill grade 3 lower esophageal valve. The squamocolumnar junction demonstrated LA grade B erosive esophagitis. The stomach was desufflated. The patient tolerated the procedure well. FINDINGS: Squamocolumnar junction 36 cm from the incisors. Diaphragmatic hiatus at 38 cm. Hiatal hernia, 2 cm Hill grade 4 lower esophageal valve. LA grade B erosive esophagitis. Cold biopsy forceps obtained of the duodenum Chronic gastritis RECOMMENDATIONS: Upper endoscopy as needed.
[2022-05-06 09:45] VITALS: PULSE 77
[2022-05-06 10:05] VITALS: BP 136/86; RESP 16
--- NOTE | 2022-05-06 10:16 | P.PCN ---
Date of Procedure: 05/06/22 Description of Procedure: PREOPERATIVE DIAGNOSIS: Personal history of colon polyps Colonoscopy screening POSTOPERATIVE DIAGNOSIS: Tubular adenoma hepatic flexure Sigmoid diverticulosis Internal hemorrhoids, grade 2 OPERATION: Colonoscopy to the ileocecal valve and appendiceal orifice, cecum Colonoscopy with hot snare polypectomy SURGEON: Shikha Juarez MD. ANESTHESIA: MAC. INDICATIONS: The patient is an 66-year-old male who presents personal history of colon polyps. Last colonoscopy less than 5 years. Benefits and risks were described and informed consent was obtained. DESCRIPTION OF PROCEDURE: The patient had undergone Sutab prep. The patient had been brought into the operating room and laid in the left lateral decubitus position. After adequate intravenous sedation, the rectum was examined with 2% lidocaine jelly. External hemorrhoids were encountered. The rectal tone was within normal limits. No lesions were palpated in the rectal vault. An Olympus colonoscope was advanced until the cecum, ileocecal valve and appendiceal orifice were clearly viewed. The prep was good. Sigmoid diverticulosis was encountered. Colonic polyps were found and removed. No evidence of focal colitis was found. Retroflexion of the scope demonstrated grade 2 internal hemorrhoids without active bleeding or inflammation. The colon was desufflated. The patient had tolerated the procedure well. Withdrawal time was over 6 minutes. FINDINGS: Aronchick preparation quality scale 2 (1-5) Internal hemorrhoids, grade 2 External hemorrhoids, grade 2 No arteriovenous malformations. Sigmoid diverticulosis Removal of 1 polyps: - Snare polypectomy hepatic flexure, 11 mm tubulovillous adenoma polyp. No focal colitis. RECOMMENDATIONS: Repeat colonoscopy in 3 years, Plan - Discharge Summary Discharge Rx Participant: No New Discharge Prescriptions: New Omeprazole [PriLOSEC] 40 mg PO DAILY #14 cap Continue Estradiol [Estrace] 1 mg PO DAILY Budesonide/Formoterol Fumarate [Symbicort 160-4.5 Mcg Inhaler] 2 puff INHALATION RT-BID Escitalopram [Lexapro] 5 mg PO DAILY Ondansetron Odt [Zofran ODT] 4 mg PO Q8HR PRN #20 tab PRN Reason: Nausea Discharge Medication List Estradiol [Estrace] 1 mg PO DAILY 07/31/14 [History] Budesonide/Formoterol Fumarate [Symbicort 160-4.5 Mcg Inhaler] 2 puff INHALATION RT-BID 05/08/20 [History] Escitalopram [Lexapro] 5 mg PO DAILY 11/18/20 [History] Ondansetron Odt [Zofran ODT] 4 mg PO Q8HR PRN #20 tab 11/18/20 [Rx] Omeprazole [PriLOSEC] 40 mg PO DAILY #14 cap 05/06/22 [Rx] Follow up Appointment(s)/Referral(s): Shikha Juarez MD [STAFF PHYSICIAN] - 05/25/22 Patient Instructions/Handouts: Hiatal Hernia (DC), Diverticulosis (GEN), Colorectal Polyps (GEN), Diverticulosis Diet (GEN) Activity/Diet/Wound Care/Special Instructions: Repeat colonoscopy in 3 years, 2024 Discharge Disposition: HOME SELF-CARE
== END 2022-05-06 10:35 | disposition home or self-care (01) ==
LOC: ORWHC2ENDO 07:53
PROVIDERS: ATTEND Surgery Plastic and Reconstructive Surgery
DX: K21.00 Gastro-esophageal reflux disease with esophagitis, without bleeding (principal); K29.50 Unspecified chronic gastritis without bleeding; K44.9 Diaphragmatic hernia without obstruction or gangrene; Z12.11 Encounter for screening for malignant neoplasm of colon; D12.3 Benign neoplasm of transverse colon; K57.30 Diverticulosis of large intestine without perforation or abscess without bleeding; K64.1 Second degree hemorrhoids; K64.4 Residual hemorrhoidal skin tags; Z86.010 Personal history of colon polyps; Z80.0 Family history of malignant neoplasm of digestive organs; J44.9 Chronic obstructive pulmonary disease, unspecified; E04.1 Nontoxic single thyroid nodule; Z87.891 Personal history of nicotine dependence; Z79.890 Hormone replacement therapy; Z79.899 Other long term (current) drug therapy; Z79.51 Long term (current) use of inhaled steroids; Z88.5 Allergy status to narcotic agent; Z88.8 Allergy status to other drugs, medicaments and biological substances; Z91.09 Other allergy status, other than to drugs and biological substances; Z98.890 Other specified postprocedural states; Z98.891 History of uterine scar from previous surgery; Z90.710 Acquired absence of both cervix and uterus
CPT/HCPCS: 88305; 45385; 43239; J2405; J2704; J2001

== ENCOUNTER → 2022-11-23 | Outpatient (CLI) | payer MEDICARE ==
[2022-11-23 17:08] LABS: ABG Base Excess 1.4 mmol/L; ABG HCO3 25 mmol/L (21-25); ABG Oxygen Saturation 95.2 % (94-97); ABG PCO2 36 mmHg (35-45); ABG PH 7.46 (7.35-7.45); ABG PO2 71 mmHg (83-108); ABG TCO2 26 mmol/L (19-24); Allen Test Performed? Yes
== END | disposition home or self-care (01) ==
LOC: LABWHC1 16:03
PROVIDERS: ATTEND Internal Medicine
DX: J44.9 Chronic obstructive pulmonary disease, unspecified (principal)
CPT/HCPCS: 36600; 82805

== ENCOUNTER → 2022-12-17 | Outpatient (CLI) | payer MEDICARE ==
--- NOTE | 2022-12-17 11:41 | CT ---
EXAMINATION TYPE: CT pancreas biphase DATE OF EXAM: 12/17/2022 COMPARISON: 06/30/2021 and 06/20/2018 HISTORY: 67-year-old female K86.2, Pancreatic cyst. TECHNIQUE: Contiguous axial scanning of the abdomen before and after administration of 125 ml Isovue- 370 IV contrast. Postcontrast arterial and portal venous phase sequences are performed. Coronal/sagi ttal reconstructions performed. CT DLP: 544.90 mGycm Automated exposure control for dose reduction was used. FINDINGS: Heart normal size without pericardial effusion. Bands of scarring and atelectasis redemonstrated in t he lower lungs, increased from prior. Underlying emphysematous changes noted. There is a 6 mm posterior right lower lobe pulmonary nodule, similar compared to the 2018 study, poss ibly a millimeter larger. Indolent behavior suggests a benign etiology. Consider one-year follow-up t o reassess. No pleural effusion. No focal liver lesion or biliary ductal dilatation. Portal venous system is patent. Gallbladder, adrenal glands, kidneys, and spleen within normal limits. Redemonstrated 9 mm cyst at the junction of the pancreatic neck and body. Unchanged from 06/30/2021. No additional pancreatic lesion. No dilated small bowel, free fluid, or free air. No mesenteric or retroperitoneal lymphadenopathy. Sc attered mild to moderate stool. No pericolonic inflammatory change. Transitional lumbosacral segment noted. Mild multilevel degenerative disc disease. IMPRESSION: 1. REDEMONSTRATED 9 MM CYST AT THE JUNCTION OF THE PANCREATIC NECK AND BODY. THIS IS STABLE FOR NEARL Y 6 MONTHS. CONSIDER AN ADDITIONAL 9-12 MONTH FOLLOW-UP. AFTER DEMONSTRATING A YEAR OF STABILITY, CON SENSUS GUIDELINES WOULD SUGGEST THAT THIS IS A BENIGN ETIOLOGY AND NO FURTHER FOLLOW-UP WOULD BE REQU IRED. WE NOTE THAT THE CYST IS MINIMALLY INCREASED IN SIZE FROM 2018. 2. ATTENTION ON FOLLOW-UP FOR A 6 MM RIGHT LOWER LOBE PULMONARY NODULE, A MILLIMETER LARGER FROM 2018 . ALSO LIKELY BENIGN.
== END | disposition home or self-care (01) ==
LOC: RADCTMAIN 06:57
DX: K86.2 Cyst of pancreas (principal); R91.1 Solitary pulmonary nodule
CPT/HCPCS: 82565; 84520; 36415; 74160; Q9967

== ENCOUNTER → 2024-01-13 | Outpatient (CLI) | payer MEDICARE ==
--- NOTE | 2024-01-13 12:27 | MR ---
EXAMINATION: MRI PANCREAS WITHOUT AND WITH CONTRAST. DATE OF EXAMINATION: 01/13/2024. COMPARISON: CT pancreas on 12/17/2022 and 06/30/2021. INDICATION: Pancreatic cyst. PROCEDURE: Multiplanar, multisequence images of the abdomen were obtained without with contrast. 7.5 mL of Gadavist was given intravenously.. FINDINGS: LOWER CHEST : The visualized lung bases are clear. There are no pleural or pericardial effusions. ABDOMEN: Liver and Biliary system: The liver is enlarged measuring 19.8 cm in craniocaudal dimension. No foca l liver lesions are seen. Adrenal glands: Normal. Kidneys and ureters: Normal. Spleen: Normal. Pancreas: Unchanged 8.5 mm cyst within the body of the pancreas. No solid pancreatic lesions are see n. There is no pancreatic ductal dilation or surrounding inflammatory change. Gallbladder: Multiple gallstones are seen within the gallbladder. Lymph nodes, Peritoneum and mesentery: There is no mesenteric or retroperitoneal lymphadenopathy. Gastrointestinal tract: There are no dilated loops of bowel or free intraperitoneal air. The appe ndix is normal. Aorta/IVC: No aortic aneurysm. IVC normal. Abdominal wall: Normal. PELVIS: Fluid: There is no free fluid in the pelvis. Lymph Nodes: There is no pelvic or inguinal lymphadenopathy.. Urinary bladder: Normal. BONES: There are no osseous destructive lesions.. ADDITIONAL SIGNIFICANT FINDINGS: None. IMPRESSION: 1. Unchanged subcentimeter cyst within the pancreas is likely benign as this is unchanged since 021. Consider follow-up in 2 years. 2. Thyromegaly. 3. No acute findings otherwise seen.
== END | disposition home or self-care (01) ==
LOC: RADMRIMAIN 08:38
DX: K86.2 Cyst of pancreas (principal); E01.0 Iodine-deficiency related diffuse (endemic) goiter
CPT/HCPCS: 74183; A9585

== ENCOUNTER → 2024-02-02 | Outpatient (CLI) | payer MEDICARE ==
--- NOTE | 2024-02-02 12:43 | BD ---
EXAMINATION TYPE: Axial Bone Density DATE OF EXAM: 02/02/2024 CLINICAL HISTORY: 68 years old Female. ICD-10 CODE: N95.1 MENOPAUSAL AND FEMAL Height: 63.5 Weight: 161.4 FRAX RISK QUESTIONS: Alcohol (3 or more units per day): no Family History (Parent hip fracture): no Glucocorticoids (More than 3mos): Inhaler once a day past 7 years History of Fracture in Adulthood: no Secondary Osteoporosis: 1. Type 1 Diabetes: no 2. Hyperthyroidism: no 3. Menopause before 45: yes 4. Malnutrition: no 5. Chronic liver disease: no Rheumatoid Arthritis: no Current Tobacco Use: no RISK FACTORS HISTORY OF: Hip Fracture (Right/Left): no Spine Fracture: no History of Wrist Fracture: no Surgery to Spine/Hip(right/left)/Wrist (right/left): no MEDICATIONS: Thyroid Medications: no Osteoporosis Medications:no EXAM MEASUREMENTS: Bone mineral densitometry was performed using the [employer] System. Bone mineral density as measured about the Lumbar spine is: ----- L1-L4(G/cm2): 1.287 T Score Values are as follows: ----- L1: 1.4 ----- L2: 0.6 ----- L3: 1.1 ----- L4: 0.4 ----- L1-L4: 0.9 Z Score Values are as follows: ----- L1: 2.8 ----- L2: 1.9 ----- L3: 2.4 ----- L4: 1.8 ----- L1-L4: 2.2 Bone mineral density has: increased 3.9 % since study of: 12/05/2017 Bone mineral density about the R hip (g/cm2): 1.103 Bone mineral density about the L hip (g/cm2): 1.056 T Score values are as follows: -----R Neck: 0.3 -----L Neck: 0.1 -----R Total: 0.8 -----L Total: 0.4 Z Score values are as follows: -----R Neck: 1.7 -----L Neck: 1.4 -----R Total: 1.8 -----L Total: 1.5 Bone mineral density has: increased 1.9 % since study of: 12/05/2017 FRAX%s: The graph provided illustrates a 6.7% chance for a major osteoporotic fx and a 0.2% chance fo r the hips probability for fx in 10 years time. IMPRESSION: Normal (Values between +1 and -1 indicate normal bone mass). Consider repeating this study in 5 year s or sooner if there is some new clinical indication. NOTE: T-SCORE=SD OF THE YOUNG ADULT MEAN.
--- NOTE | 2024-02-03 08:44 | MM ---
Reason for Exam: Screening (asymptomatic). Last mammogram was performed 1 year(s) and 10 month(s) ago. Patient History: Menarche at age 14. First Full-Term at age 18. Left ovary removed at age 43. Right ovary removed at age 43. Hysterectomy at age 43. Postmenopausal. Currently using Estrogen, beginning at age 43 for 17 years, 6 months. Paternal aunt had breast cancer, age 50. Paternal aunt had breast cancer, age 50. Risk Values: Mary 5 year model risk: 1.2%. NCI Lifetime model risk: 4.4%. Prior Study Comparison: 12/25/2019 Bilateral Diagnostic Mammogram, [facility]. 01/15/2021 Bilateral Screening Mammogram, [facility]. 04/05/2022 Bilateral Screening Mammogram, [facility]. Tissue Density: The breasts are heterogeneously dense, which may obscure small masses. Findings: Analyzed By CAD. There is no suspicious group of microcalcifications or new suspicious mass in either breast. Overall Assessment: Benign, BI-RAD 2 Management: Screening Mammogram of both breasts in 1 year. . Patient should continue monthly self-breast exams. A clinical breast exam by your physician is recommended on an annual basis. This exam should not preclude additional follow-up of suspicious palpable abnormalities. Note on Mary scores and lifetime risk: 1. A Mary score greater than 3% is considered moderate risk. If this is the case, consider specialist referral to assess eligibility for a risk reducing agent. 2. If overall lifetime risk for the development of breast cancer is 20% or higher, the patient may qualify for future screening with alternating mammogram and breast MRI. Electronically signed and approved by: Doni Brooks M.D. Radiologis
== END | disposition home or self-care (01) ==
LOC: RADBDWWP 08:34
PROVIDERS: ATTEND Obstetrics & Gynecology
DX: Z12.31 Encounter for screening mammogram for malignant neoplasm of breast (principal); N95.1 Menopausal and female climacteric states; Z80.3 Family history of malignant neoplasm of breast
CPT/HCPCS: 77067; 77080

== ENCOUNTER → 2024-07-05 | Outpatient (CLI) | payer MEDICARE | END | disposition home or self-care (01) | LOC: LABPRL 10:15 | PROVIDERS: ATTEND Family Medicine | DX: Z00.00 Encounter for general adult medical examination without abnormal findings (principal); J44.9 Chronic obstructive pulmonary disease, unspecified | CPT/HCPCS: 80053; 80061; 83036; 85025 ==

== ENCOUNTER → 2025-03-07 | Outpatient (CLI) | payer MEDICARE ==
--- NOTE | 2025-03-07 12:36 | MM ---
Reason for Exam: Screening (asymptomatic). Last mammogram was performed 1 year(s) and 1 month(s) ago. Patient History: Menarche at age 14. First Full-Term at age 18. Left ovary removed at age 43. Right ovary removed at age 43. Hysterectomy at age 43. Postmenopausal. Currently using Estrogen, beginning at age 43 for 17 years, 6 months. Paternal aunt had breast cancer, age 50. Paternal aunt had breast cancer, age 50. Risk Values: Mary 5 year model risk: 1.2%. NCI Lifetime model risk: 4.2%. Prior Study Comparison: 01/15/2021 Bilateral Screening Mammogram, [facility]. 04/05/2022 Bilateral Screening Mammogram, [facility]. 02/02/2024 Bilateral MG screening mammo w CAD, [facility]. Tissue Density: The breasts are heterogeneously dense, which may obscure small masses. Findings: Analyzed By CAD. There is underlying obscured nodularity approximately 3:00 peripheral left breast middle depth which appears to have increased/enlarged and further evaluation is recommended. There is some fluctuating nodularity and elongated densities medially in the right suggesting a chronic, benign etiology. There is no suspicious group of microcalcifications or new suspicious otherwise, no significant change. Overall Assessment: Incomplete: need additional imaging evaluation, BI-RAD 0 Management: Special View Mammogram of the left breast. [facility] will attempt to contact patient to return for supplemental views and ultrasound if indicated. [facility], , 03/07/2025 12:33 PM. Electronically signed and approved by: Benji Madsen M.D. Radiologist
== END | disposition home or self-care (01) ==
LOC: RADMAMWWP 07:13
PROVIDERS: ATTEND Family Medicine
DX: Z12.31 Encounter for screening mammogram for malignant neoplasm of breast (principal); R92.333 Mammographic heterogeneous density, bilateral breasts; Z78.0 Asymptomatic menopausal state; Z80.3 Family history of malignant neoplasm of breast
CPT/HCPCS: 77067

== ENCOUNTER → 2025-03-14 | Outpatient (CLI) | payer MEDICARE ==
--- NOTE | 2025-03-14 07:48 | MM ---
Reason for Exam: Additional evaluation requested from abnormal screening. Last screening mammogram was performed less than 1 month ago. Patient History: Menarche at age 14. First Full-Term at age 18. Left ovary removed at age 43. Right ovary removed at age 43. Hysterectomy at age 43. Postmenopausal. Currently using Estrogen, starting at age 43. Paternal aunt had breast cancer, age 50. Paternal aunt had breast cancer, age 50. Risk Values: Mary 5 year model risk: 1.2%. NCI Lifetime model risk: 4.2%. Prior Study Comparison: 12/05/2017 Bilateral Screening Mammogram, [facility]. 12/21/2018 Bilateral Screening Mammogram, [facility]. 12/25/2019 Bilateral Diagnostic Mammogram, [facility]. 01/15/2021 Bilateral Screening Mammogram, [facility]. 04/05/2022 Bilateral Screening Mammogram, [facility]. 02/02/2024 Bilateral MG screening mammo w CAD, [facility]. 03/07/2025 Bilateral MG screening mammo w CAD, [facility]. Tissue Density: Left: The breasts are heterogeneously dense, which may obscure small masses. Findings: Analyzed By CAD. At the 2 to 3:00 position left breast there appears to be a bilobed lesion 6.3 cm from the nipple measuring 1.9 cm size. Additional small nodular density 3.2 cm from the nipple measures 1.4 cm in size. Ultrasound is recommended. Overall Assessment: Benign, BI-RAD 2 Management: Diagnostic Breast Ultrasound of the left breast. . Results were given to the patient verbally at the time of exam. Patient should continue monthly self-breast exams. A clinical breast exam by your physician is recommended on an annual basis. This exam should not preclude additional follow-up of suspicious palpable abnormalities. Note on Mary scores and lifetime risk: 1. A Mary score greater than 3% is considered moderate risk. If this is the case, consider specialist referral to assess eligibility for a risk reducing agent. 2. If overall lifetime risk for the development of breast cancer is 20% or higher, the patient may qualify for future screening with alternating mammogram and breast MRI. [facility], , 03/14/2025 7:44 AM. Electronically signed and approved by: Doni Brooks M.D. Radiologis
--- NOTE | 2025-03-14 08:19 | USB ---
Reason for Exam: Additional evaluation requested from abnormal screening. Patient History: Menarche at age 14. First Full-Term at age 18. Left ovary removed at age 43. Right ovary removed at age 43. Hysterectomy at age 43. Postmenopausal. Currently using Estrogen, starting at age 43. Paternal aunt had breast cancer, age 50. Paternal aunt had breast cancer, age 50. Risk Values: Mary 5 year model risk: 1.2%. NCI Lifetime model risk: 4.2%. Technique: Method: Targeted. Prior Study Comparison: 04/05/2022 Bilateral Screening Mammogram, [facility]. 02/02/2024 Bilateral MG screening mammo w CAD, [facility]. 03/07/2025 Bilateral MG screening mammo w CAD, [facility]. Findings: The lateral section of the breast of the left breast, the axilla of the left breast and the retroareolar of the left breast were scanned. Ultrasound of the left 3:00 position demonstrates hypoechoic mass with lobulated margins measuring 2.1 x 1.2 cm 6 cm from the nipple. Tissue diagnosis is recommended. Mildly prominent ducts are seen more anteriorly. Overall Assessment: Suspicious, BI-RAD 4 Management: Ultrasound Core Biopsy of the left breast. A clinical breast exam by your physician is recommended on an annual basis and results should be correlated with mammographic findings. This exam should not preclude additional follow-up of suspicious palpable abnormalities. Results were given to the patient verbally at the time of exam. [facility], , 03/14/2025 8:16 AM. Electronically signed and approved by: Doni Brooks M.D. Radiologis
== END | disposition home or self-care (01) ==
LOC: RADMAMWWP 07:20
PROVIDERS: ATTEND Family Medicine
DX: R92.8 Other abnormal and inconclusive findings on diagnostic imaging of breast (principal); R92.322 Mammographic fibroglandular density, left breast; Z78.0 Asymptomatic menopausal state; Z80.3 Family history of malignant neoplasm of breast
CPT/HCPCS: 77065; 76642; G0279; 77061

== ENCOUNTER → 2025-03-28 | Day surgery (SDC) | payer MEDICARE ==
--- NOTE | 2025-04-04 08:23 | MM ---
Reason for Exam: Post Procedure Mammogram. Last screening mammogram was performed less than 1 month ago. Patient History: Menarche at age 14. First Full-Term at age 18. Left ovary removed at age 43. Right ovary removed at age 43. Hysterectomy at age 43. Postmenopausal. Currently using Estrogen, starting at age 43. Paternal aunt had breast cancer, age 50. Paternal aunt had breast cancer, age 50. Risk Values: Mary 5 year model risk: 1.2%. NCI Lifetime model risk: 4.2%. Prior Study Comparison: 01/15/2021 Bilateral Screening Mammogram, [facility]. 04/05/2022 Bilateral Screening Mammogram, [facility]. 02/02/2024 Bilateral MG screening mammo w CAD, [facility]. 03/07/2025 Bilateral MG screening mammo w CAD, [facility]. 03/14/2025 Left MG 3D work up w/cad , [facility]. Tissue Density: Left: The breasts are heterogeneously dense, which may obscure small masses. Pathology Description: Location: 3 o'clock. Marker Left Behind. Approach: Lateral to Medial Needle Type: Mammotome Cores: 4 Gauge: 13 The procedure of ultrasound guided core biopsy was explained to the patient. Benefits, alternatives, and risks were discussed. An informed consent was then obtained. The patient was placed in supine positioning for imaging and for the procedure. Preprocedure ultrasound redemonstrates a lobulated mass at 3:00 position 8 cm distance from the nipple measuring approximately 2.7 x 1.3 cm this is slightly more isoechoic in appearance on today's study. The overlying skin was prepped and draped in usual sterile fashion. Lidocaine buffered with bicarbonate was used as anesthetic into the skin. Lidocaine with epinephrine is used as anesthetic into the deeper subcutaneous tissue up to area of concern in the left breast. A marion was made with surgical scalpel. Under ultrasound guidance, a vacuum assisted biopsy gun device was used to obtain 4 core samples. Following this, a biopsy clip was left in lesion. The patient tolerated the procedure well without any immediate complication. The patient was kept in the radiology department for short stay after the procedure and then discharged home in stable condition. Postprocedure mammogram: The patient was transferred to mammography for physician ordered post procedure mammogram for clip placement verification. Post procedure mammogram demonstrates successful deployment of clip. Clip is along the inferior medial aspect of the sampled mass. Impression: Successful, uncomplicated ultrasound guided core biopsy of area of concern in the left breast, full pathology results to follow. Intermediate to high index of suspicion noted at time of procedure. [facility], , 03/28/2025 12:24 PM. Pathology Results: Result: Malignant, Mucinous (colloid) carcinoma. Pathology and radiology were reviewed. Findings are concordant. LEFT BREAST, THREE O'CLOCK 8 CM FROM NIPPLE, NEEDLE CORE BIOPSY: Mucinous carcinoma. See Surgical Pathology Cancer Case Summary. Overall Assessment: Malignant Assessment: MG diagnostic mammo LT wo CAD. - Left: Known biopsy proven malignancy, BI-RAD 6. Management: Surgical Consultation of the left breast. Electronically signed and approved by: Yosvany Kirkpatrick M.D.
== END ==
LOC: RADUSWWP 07:18
PROVIDERS: ATTEND Surgery
DX: C50.912 Malignant neoplasm of unspecified site of left female breast (principal); R92.8 Other abnormal and inconclusive findings on diagnostic imaging of breast; Z17.0 Estrogen receptor positive status [ER+]; Z78.0 Asymptomatic menopausal state; Z90.721 Acquired absence of ovaries, unilateral
CPT/HCPCS: 88305; 88342; 88341; 77065; 19083; A4648

== ENCOUNTER → 2025-05-19 | Outpatient (CLI) | payer MEDICARE ==
--- NOTE | 2025-05-21 13:00 | BMR ---
EXAM DATE: 05/19/2025 EXAM DESCRIPTION: MRI-Breast Bilat (W/WO Contrast) INDICATION: Recent diagnosis of left breast cancer (mucinous invasive carcinoma) COMPARISON: Comparison was made to prior relevant imaging available in PACS TECHNIQUE: Multiplanar multisequence breast MRI was performed prior to and after administration of 7.5 mL of gadobutrol intravenously. Post processing was performed utilizing a [employer] workstation. The exam was performed at the [facility] and was provided to review by [facility]. FINDINGS: There is moderate symmetric background parenchymal enhancement in breasts that are composed of heterogeneous fibroglandular tissue. RIGHT BREAST: Review of the dynamic contrast enhanced series shows no rapidly enhancing masses, suspicious enhancement patterns or other abnormalities. The T2 weighted series shows several circumscribed subcentimeter T2 hyperintense nonenhancing masses, the largest 7 mm at 5 o'clock position posterior depth of the breast (series 401, image 25), too small to fully characterize, however probable small cysts. LEFT BREAST: Review of the dynamic contrast enhanced series shows irregular T2 hyperintense heterogeneously enhancing mass at 3 o'clock position mid depth of the breast which measures 2.2 x 1.6 x 1.8 cm (series 503, image 382 and series 601, image 53) which is compatible with biopsy-proven malignancy. There are two satellite nodules, a 6 mm T2 hyperintense slightly lateral and towards the nipple from dominant mass (series 401, image 33 and series 601, image 46) and a 6 mm posteriorly towards the chest wall (series 401, image 34 and series 503, image 398). Otherwise, the T2 weighted sequence shows several circumscribed subcentimeter T2 hyperintense nonenhancing masses, too small to fully characterize, however probable small cysts. LYMPH NODES: No axillary or internal mammary lymphadenopathy. IMPRESSION: 1. Right breast: No definitive MR evidence of malignancy. A few scattered circumscribed T2 hyperintense nonenhancing masses, too small to fully characterize, but likely small cysts. 2. Left breast: A 2.2 x 1.6 x 1.8 cm T2 hyperintense heterogeneously enhancing mass at 3 o'clock position mid depth of the breast compatible with biopsy-proven malignancy with two subcentimeter surrounding satellite nodules. 3. Left breast: A few scattered well-circumscribed T2 hyperintense nonenhancing masses, too small to fully characterize, but likely small cysts. Recommendation: Given biopsy-proven malignancy in the left breast, recommend appropriate oncological and surgical care. Final assessment: BI-RADS 6, biopsy-proven malignancy. MTDD
== END | disposition home or self-care (01) ==
LOC: RADMRIMAIN 05-10 21:00
PROVIDERS: ATTEND Surgery
DX: N63.25 Unspecified lump in the left breast, overlapping quadrants (principal); Z85.3 Personal history of malignant neoplasm of breast
CPT/HCPCS: C8908; A9585; 77049

== ENCOUNTER → 2025-05-30 | Outpatient (CLI) | payer MEDICARE ==
--- NOTE | 2025-05-30 09:34 | USB ---
Reason for Exam: Additional evaluation requested from prior study. Patient History: Menarche at age 14. First Full-Term at age 18. Left ovary removed at age 43. Right ovary removed at age 43. Hysterectomy at age 43. Postmenopausal. Breast cancer, left, age 69. Currently using Estrogen, starting at age 43. 03/28/2025, Malignant US biopsy breast VAD LT on the left side. Paternal aunt had breast cancer, age 50. Paternal aunt had breast cancer, age 50. Technique: Method: Targeted. Prior Study Comparison: 03/07/2025 Bilateral MG screening mammo w CAD, [facility]. 03/14/2025 Left MG 3D work up w/cad LT, [facility]. 03/28/2025 Left MG diagnostic mammo LT wo CAD., [facility]. Findings: The lateral section of the breast of the left breast, the axilla of the left breast and the retroareolar of the left breast were scanned. Targeted second look ultrasound after MRI at the 2 to 3:00 position for satellite nodularity seen on MRI adjacent to a biopsy-proven 3:00 left breast cancer. At the 3:00 position, 6 cm from the nipple, biopsy proven mucinous carcinoma measuring 2.0 x 1.4 x 1.1 cm. Biopsy clip is located along the inferior margin of the mass. At the 2:00 position, 7 cm from the nipple, there is a 6 x 6 x 4 mm satellite nodule. Difficult to determine if this represents the more anterior posterior lesion on MRI. At the 3:00 position, 6 cm from the nipple, there is a very vague area estimated to measure 8 mm. Unclear if this represents some focal prominent breast tissue or a subtle underlying lesion. This will not serve as an adequate target for biopsy given the poor definition. The total span of all 3 areas is 4.4 cm, refer to image 32. Overall Assessment: Known biopsy proven malignancy, BI-RAD 6 Management: Ultrasound Core Biopsy of the left breast. Prior to surgery, consideration can be given to ultrasound core needle biopsy and clip placement at the 6 mm, 2:00 satellite nodule. This may assist in bracketing. As the other area at 3:00 is too vague to serve as an adequate target for ultrasound biopsy, consider clip placement at this site without biopsy. Again, this may assist in bracketing. Results were given to the patient verbally at the time of exam. [facility], , 05/30/2025 9:05 AM. Electronically signed and approved by: Benji Madsen M.D. Radiologist
== END | disposition home or self-care (01) ==
LOC: RADUSWWP 06:52
PROVIDERS: ATTEND Surgery
DX: R68.89 Other general symptoms and signs (principal); Z85.3 Personal history of malignant neoplasm of breast; Z78.0 Asymptomatic menopausal state; Z80.3 Family history of malignant neoplasm of breast

== ENCOUNTER → 2025-06-13 | Day surgery (SDC) | payer MEDICARE ==
--- NOTE | 2025-06-28 10:35 | MM ---
Reason for Exam: Post Procedure Mammogram. Last screening mammogram was performed 3 month(s) ago. Patient History: Menarche at age 14. First Full-Term at age 18. Left ovary removed at age 43. Right ovary removed at age 43. Hysterectomy at age 43. Postmenopausal. Breast cancer, left, age 69. Currently using Estrogen, starting at age 43. 03/28/2025, Malignant US biopsy breast VAD LT on the left side. Paternal aunt had breast cancer, age 50. Paternal aunt had breast cancer, age 50. Prior Study Comparison: 03/07/2025 Bilateral MG screening mammo w CAD, [facility]. 03/14/2025 Left MG 3D work up w/cad LT, [facility]. 03/28/2025 Left MG diagnostic mammo LT wo CAD., [facility]. Tissue Density: Left: The breasts are heterogeneously dense, which may obscure small masses. Pathology Description: Location: 2 o'clock. Cores: 6 Skin Nicks: 1 Gauge: 18 The procedure of ultrasound guided core biopsy was explained to the patient. Benefits, alternatives, and risks were discussed. An informed consent was then obtained. The patient was placed in supine positioning for imaging and for the procedure. The overlying skin was prepped and draped in usual sterile fashion. Lidocaine buffered with bicarbonate was used as anesthetic into the skin and subcutaneous tissue up to area of concern in the left breast. A marion was made with surgical scalpel. Under ultrasound guidance, a 18-gauge core biopsy gun device was used to obtain 5 core samples. Following this, a biopsy clip was left in lesion. The patient tolerated the procedure well without any immediate complication. The patient was kept in the radiology department for short stay after the procedure and then discharged home in stable condition. Postprocedure mammogram: The patient was transferred to mammography for physician ordered post procedure mammogram for clip placement verification. Post procedure mammogram demonstrates appropriate placement of clip. Impression: 1.Successful, uncomplicated ultrasound guided core biopsy of area of concern 2:00 position left breast 7 cm from the nipple in the left breast, full pathology results to follow. 2. The second ill-defined site at the 3:00 position was not identified and could not be biopsied. Consider MRI guided biopsy. [facility], , 06/13/2025 8:57 AM. Pathology Results: Result: Malignant. Pathology and radiology were reviewed. Findings are concordant. ADDENDUM: Ki-67 immunostain was attempted on block A1, however is non-contributory as the majority of the tumor has been depleted on the immunostained section. ESTROGEN RECEPTOR (ER): Positive (91-100%), strong intensity staining. See comment. PROGESTERONE RECEPTOR (NC): Positive (41-50%), strong intensity staining. See comment. HER2 BY IHC: Negative (score 1+). See comment. COMMENT: It is noted that the majority of the tumor has been depleted and is no longer present on the ER, NC and HER2 stained sections. For this reason, the results are somewhat limited. Prognostic studies will be repeated on the forthcoming excision specimen. Additional formalin-fixed paraffin embedded sections from block A1 are immunostained at [place], [place] for the demonstration of estrogen and progesterone receptors, using rabbit IgG monoclonal antibodies ER clone [id number] and NC clone [id number] with iView DAB detection ([place], [place], [place]). Using this method, and according to ASCO-CAP guidelines, a value of >1% nuclear staining is a positive result. Additional sections from block A1 are immunostained for the evaluation of cell membrane antigens associated with the expression of the Her-2 gene product using the Pathway anti-HER-2/Fazal rabbit monoclonal primary antibody [id number] with ultraview DAB detection ([place], [place], [place]), the staining validated and performed at [place], [place], and including appropriate positive and negative controls. With this method, staining results are reported as follows: 0 is no staining of tumor cells or incomplete faint/barely perceptible membrane staining in less than 10% of tumor cells; 1+ is incomplete faint/barely perceptible membranes staining in greater than 10% of tumor cells; 2+ is weak/moderate complete membrane staining in greater than 10% of tumor cells; 3+ is circumferential complete membrane staining that is intense and present in greater than 10% of tumor cells. Results are interpreted as follows: 0,1+ negative; 2+ equivocal; 3+ positive. Current CAP/ASCO guidelines recommend further evaluation of equivocal immunostaining results by FISH testing to assess Her-2 overexpression at the gene level. Current CAP/ASCO guidelines recommend repeat testing of negative core biopsy immunostain results on additional specimens if the tumor is Grade 3, the amount of tumor assessed in the core material is small, the subsequent specimen contains high grade tumor morphologically distinct from that seen in the core, the core material is equivocal by immunostain and FISH, there is doubt about the appropriateness of specimen handling or fixation, or the pathologist suspects a negative result on the basis of test error. RIGHT BREAST, TWO O'CLOCK, NEEDLE CORE BIOPSY: Mucinous carcinoma. See Surgical Pathology Cancer Case Summary and Comment. Overall Assessment: Malignant Assessment: MG diagnostic mammo LT wo CAD. - Left: Known biopsy proven malignancy, BI-RAD 6. Management: Surgical Consultation of the right breast. Electronically signed and approved by: Sammy Tafoya M.D. Radiologis
== END ==
LOC: RADUSWWP 07:08
PROVIDERS: ATTEND Surgery
DX: C50.412 Malignant neoplasm of upper-outer quadrant of left female breast (principal); Z80.3 Family history of malignant neoplasm of breast; Z78.0 Asymptomatic menopausal state; Z90.721 Acquired absence of ovaries, unilateral; Z17.0 Estrogen receptor positive status [ER+]
CPT/HCPCS: 77065; 88305; 88341; 88342